=== PATIENT | female | born 1965 | race Caucasian/White ===

== ENCOUNTER → 2018-04-04 10:13 | Outpatient (CLI) | payer MEDICARE, SELFPAY ==
--- NOTE | 2018-04-04 10:20 | RAD_ITS ---
STUDY: X-RAY - LEFT ANKLE REASON FOR EXAM: Female, 52 years old. Pain radiating into heel, no history of injury. TECHNIQUE: 3 view(s) of the ankle. COMPARISON: None. FINDINGS: Normal visualized distal tibia and fibula. Minor spurring at the tip of the medial malleolus. Normal lateral malleolus. Normal tibiotalar articulation and ankle mortise. Normal visualized talus and calcaneus. The visualized subtalar, talonavicular, calcaneocuboid and tarsal articulations are normal. There is no demonstrated osseous destructive lesion or fracture. Minor cutaneous/subcutaneous calcifications seen in the anterior soft tissues of the distal lower leg. RAD/Ankle min 3 Views IMPRESSION: No acute osseous abnormality of the left ankle. Electronically Signed: Ad Grey MD at 10:55 EDT , Service support ,
--- NOTE | 2018-04-04 10:20 | RAD_ITS ---
STUDY: X-RAY - LEFT FOOT CLINICAL: Female, 52 years old. Calcaneal pain. No known injury. TECHNIQUE: 3 view(s) of the foot. COMPARISON: Comparison is made with prior study April 24, 2017. FINDINGS: Normal talus, calcaneus, and tarsal bones. Normal visualized subtalar, talonavicular, calcaneocuboid, tarsal and tarsometatarsal articulations. The patient is status post osteotomy and bunionectomy of the distal first metatarsal. There is degenerative arthrosis of the metatarsophalangeal joint of the hallux . Normal tibial and fibular sesamoid bones. Normal interphalangeal joint of the great toe. Normal phalanges of the great toe. Normal second through fifth metatarsophalangeal joints. Normal interphalangeal joints and phalanges of the lesser toes. The soft tissue structures are unremarkable. RAD/Foot min 3 Views IMPRESSION: Prior bunionectomy. No acute abnormality is seen. Electronically Signed: Ari Lemus MD at 13:59 EDT Tel [phone], Service support ,
== END ==
PROVIDERS: Family Provider Internal Medicine; PCP Internal Medicine; Visit Provider Internal Medicine
DX: M79.672 Pain in left foot (principal)
CPT/HCPCS: 73610; 73630

== ENCOUNTER → 2018-05-09 07:18 | Outpatient (CLI) | payer MEDICARE, SELFPAY ==
--- NOTE | 2018-05-09 07:18 | DT_ITS ---
This patient was seen during an EMR downtime May 02, 2018 - May 09, 2018. This patient may have a combination of paper and electronic documentation or all paper documentation. All documentation is viewable within the e-chart portion of [employer] for each patient visit.
--- NOTE | 2018-05-09 07:25 | MRI_ITS ---
STUDY: MRI LEFT MIDFOOT REASON FOR EXAM: Pain distal third metatarsal, history of previous stress fracture and prior great toe surgery. TECHNIQUE: Standardized fat and water weighted pulse sequences were obtained in all 3 orthogonal planes. COMPARISON: Radiographs 04/04/2018 and MRI images 05/05/2017. FINDINGS: Normal talonavicular articulation. Normal calcaneocuboid articulation. Normal navicular-cuneiform articulations. Normal intercuneiform articulations. Normal first tarsometatarsal articulation. Normal Lisfranc ligament. Normal second and third tarsometatarsal articulations. Normal cuboid fourth and cuboid fifth tarsometatarsal articulation. There is interval development of a stress fracture of the distal third metatarsal diaphysis with bone and periosteal edema (inversion recovery sagittal image 14; T2 axial series 6 image 9). There is healed stress fracture deformity of the second metatarsal (T1 sagittal image 11) without bone edema. There are postsurgical changes of the first metatarsal with a healed osteotomy (T1 sagittal image 5). There is arthrosis of the first metatarsophalangeal joint with chondral thinning and subchondral cystic change (inversion recovery sagittal image 5). There is a small volume of fluid in the distal tibialis anterior tendon sheath (inversion recovery sagittal images 4, 5). Normal extensor hallucis longus tendon. Normal extensor digitorum longus tendons. Normal peroneus longus tendon and distal insertion. Normal peroneus brevis tendon and distal insertion. Normal intrinsic muscles of the mid and forefoot region. Normal extensor digitorum brevis muscle. Normal subcutis adipose space. MRI/Lower Ext/No Jt/w/o IMPRESSION: Stress fracture of the third metatarsal. Healed stress fracture of the second metatarsal. Mild distal tibialis anterior tenosynovitis. Postoperative changes of the first metatarsal and arthrosis of the first metatarsophalangeal joint. Electronically Signed: Mack Foster MD at 8:49 EDT Tel , Service support ,
== END ==
PROVIDERS: Family Provider Internal Medicine; PCP Internal Medicine; Visit Provider Internal Medicine
DX: M79.672 Pain in left foot (principal)
CPT/HCPCS: 73718

== ENCOUNTER 2018-05-17 15:30 | Outpatient (RCR) | payer MEDICARE, SELFPAY ==
--- NOTE | 2018-04-12 07:46 | HP.PTEVAL_ITS ---
Patient's Visit Information DARWIN BOLAÑOS is a 52 year old F referred to Physical Therapy by Luisa Coffey with a diagnosis of L foot pain, history of foot stress fracture. Date of Evaluation: 04/11/18 Physical Therapist: Santhosh Fang - Visit Plan Frequency: 2x /Week Duration: 4 Weeks Plan: Start with modalities to L foot (3rd met head US), pt. to wear boot of L foot for 2 weeks. Add in BLE and core strengthening exercises to complete in gym to increase proper gait pattern. May trial tapping to improve foot placement with gait. - Subjective Subjective: Pt. is here today for her initial evaluation with diagnosis of L foot pain, history of foot stress fracture. Pt. 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 Pt. has a history of multiple fractures, including 2 metatarsal. Pt. reports having increased L foot pain ~4 weeks ago. She put her self in a CAM boot for 4 days which helped her pain, but did feel like she was developing plantar fascitis due to being in boot. She has now taken her self out and is having 3rd metatarsal pain again. Pt. reports no mechanism of injury , but just started having pain. Pt. is concerned due to hav xray with previous stress fracture and xray did not show that fracture either. Not definitively diagnosed until MRI. Pt. has increased pain with all weight bearing positioning , but is worst with walking. Decreases pain: sitting, off loading, wearing boot. Pt. does report mild relief with OTC pain meds. Pt. is hopeful to reduce symptoms in order to get back to all recreational activities and walking without limitations. - Pain L 3rd metatarsal Pain Intensity (Out of 10): 2 Pain Intensity Range: 0, 6 - Objective POSTURE: Pt. has descent posture in stance. Pt. has normal arch height, slightlt pes cavus. Pt. has no navicular drop in SLS positioning. PALPATION: pt. has increased pain at 3rd metatarsal head and shaft. Pt. has no pain at 2nd or 4th metatarsals. Pt. has no pain at distal 3rd toe. Pt. has no pain along medial longitudinal arch or plantar fascia origin. NEUROLOGICAL: Pt. has normal sensation to light and sharp touch of bilateral LEs. Pt. has 2+ achilles and patellar DTR. Pt. is able to rise on heels and toes, but has increased pain with rising on toes (3rd metatarsal). No signs of weakness or LOB noted. ROM: Pt. has normal ROM of bilateral ankle and feet with issues. Light joint mobs were painful in L foot around 3rd metatarsal. MMT: Pt. has 5/5 strength throughout bilateral ankles and intrinsic musculature of feet. Pt. has no pain with testing, except for hand pressure on area. GAIT: Pt. has antalgic gait pattern with decreased rocker moment from mid foot to for foot at transition of stance phase to heel off. Pt. reports increased fore foot pain during this motion. Pt. has decreased pain with reduction of that rocker moment. Pt. has normal pattern otherwise. Pt. does have slight increased tibial IR and knee valgus positioning with gait. No changes with iliac crest heights or glute med weakness noted. SPECIAL TESTING: Pt. had no pain with bump testing throughout ankle/foot. Pt. had no pain with metatarsal squeeze for germain's neuroma. - Goals Goal 1:: Pt. to be I with HEP. Goal Time Frame: 4-6 Weeks Goal 2:: Pt. to ambulate with normal gait pattern unlimited distances without increase in symptoms. Goal Time Frame: 4-6 Weeks Goal 3:: Pt. to resume all ADLs and household work without increase in symptoms. Goal Time Frame: 4-6 Weeks Goal 4:: Pt. to have increased BLE and core strength to reduce tibial IR and knee valgus positioning with gait in order to allow for normal diffuse pressure applied to LEs with gait and WBing. - Rehabilitation Potential Physical Therapy Diagnosis: Pt. has signs and symptoms consistent with L foot pain. Pt. has pain located at 3rd metatarsal closed to met head, that worsens with WBing positions. Pt. had negative testing for a germain's neuroma. Pt. would benefit from BLE and core strength with use of modalities to reduce pain at L foot with all WBing activities. Rehabilitation Potential: Good - Anticipated Interventions Patient/Client Instruction: Educate patient on: Condition, Plan of Care, Risk Factors, Benefits of Fitness Program For the Purpose of:: To improve health and function, To foster healthy habits, To improve decision making, To facilitate caregiver knowledge, To improve self management, To prevent re-injury, To improve ability to perform tasks related to life management, To improve tolerance to ADL's Therapeutic Exercise to Include: Strength training, Power training, Endurance training, Balance training, Flexibilty training, Gait and locomotor training, Passive ROM, Active ROM, Dynamic Lumbar Stabilization For the Purpose of:: To decrease pain, To increase ROM, To improve nutrient delivery to tissue, To increase oxygenation perfusion, To improve muscle performance and motor function, To improve ability to perform ADL's, To increase tolerance to activity/condition/position, To improve gait and locomotor functions, To improve health of tissue, To decrease soft tissue restriction Ultrasound (thermal/non thermal): Yes For the Purpose of:: To decrease pain, To decrease swelling/inflammation, To increase ROM Thank you for the opportunity to evaluate your patient. For Medicare and Medicare HMO plans, please review the plan of care and approve it. It will need to be FAXED BACK to us at [phone] for Medicare purposes. Please let me know if there are questions or concerns regarding this plan of care. Physician Signature: Date:
--- NOTE | 2018-09-06 13:08 | HP.PT.NRP ---
HP - Discharge Summary (1) - Patient Information DARWIN BOLAÑOS was seen in my office for initial evaluation on 04/11/18. The following Plan of Care was established for this patient: Initial Frequency: 2x /Week Initial Duration: 4 Weeks - Anticipated Interventions Patient/Client Instruction: Educate patient on: Condition, Plan of Care, Risk Factors, Benefits of Fitness Program For the Purpose of:: To improve health and function, To foster healthy habits, To improve decision making, To facilitate caregiver knowledge, To improve self management, To prevent re-injury, To improve ability to perform tasks related to life management, To improve tolerance to ADL's Therapeutic Exercise to Include: Strength training, Power training, Endurance training, Balance training, Flexibilty training, Gait and locomotor training, Passive ROM, Active ROM, Dynamic Lumbar Stabilization For the Purpose of:: To decrease pain, To increase ROM, To improve nutrient delivery to tissue, To increase oxygenation perfusion, To improve muscle performance and motor function, To improve ability to perform ADL's, To increase tolerance to activity/condition/position, To improve gait and locomotor functions, To improve health of tissue, To decrease soft tissue restriction Ultrasound (thermal/non thermal): Yes For the Purpose of:: To decrease pain, To decrease swelling/inflammation, To increase ROM This patient was last seen in our office 05/17/18. Pertinent comments regarding their Physical therapy will appear below: Pt. was seen for her foot pain. She ended up have a stress fracture, but did not require surgery. Pt. progressed with modalities and at her last visit was having minimal pain. Pt. has not been seen in ~4 months and will be DC from PT at this point in time. At this point I will be discontinuing this patient from physical therapy. I would be happy to see this patient again in the future if found appropriate by the physician. Thank you! Santhosh Fang
== END 2018-05-17 19:00 | disposition home or self-care (01) ==
LOC: PT 15:30
PROVIDERS: Family Provider Internal Medicine; PCP Internal Medicine; Visit Provider Internal Medicine
DX: M79.672 Pain in left foot (principal); Z87.312 Personal history of (healed) stress fracture
CPT/HCPCS: 97035; 97110; 97162

== ENCOUNTER 2020-04-24 13:00 | Outpatient (RCR) | payer MEDICARE, SELFPAY ==
--- NOTE | 2020-01-11 12:40 | HP.PTEVAL2 ---
Patient's Visit Information DARWIN BOLAÑOS is a 54 year old F referred to Physical Therapy by HUMBERTO MCGUIRE with a diagnosis of . Date of Evaluation: Physical Therapist: Shiv Dodd, PT, ATC - Anticipated Interventions Thank you for the opportunity to evaluate your patient. For Medicare and Medicare HMO plans, please review the plan of care and approve it. It will need to be FAXED BACK to us at [phone] for Medicare purposes. For Medicare only, by signing this I certify the plan of care. Please let me know if there are questions or concerns regarding this plan of care. Physician Signature: Date:
--- NOTE | 2020-02-16 13:31 | HP.PTEVAL2 ---
Patient's Visit Information DARWIN BOLAÑOS is a 54 year old F referred to Physical Therapy by HUMBERTO MCGUIRE with a diagnosis of Thoracic spine pain and guarding. 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 Pt notes she has had thoracic spine pain ever since. Pt reports the pain in her thoracic spine is mostly due to tightness and muscle guarding. Pt reports she also has a sharp stabbing pain that is located in her LB. Pt reports all this pain limits her quite a bit with daily activities such as housework and outside work. Pt reports her pain is constant in nature, but the level varies depending on what she is doing. No tingling or numbness in LE's. Sleep difficulty secondary to pain. Pt is not able to run secondary to pain. Pt loves to garden but is unable to perform this activity secondary to pain. 1/10 pain at rest, 8/10 pain at worst (results in a burning sensation) - Pain T/S and L/S Intensity: 1 Pain Intensity Range: 8 - Objective Objective: Neuro: B LE sensation is WNL to light touch. B achilles reflex= 2/3. Palpation: Pt has significant guarding in lower thoracic spine which extends L/S. No obvious deformity with palpation. ROM: Pt is moderately limited with T/S R SB and rot. All other motions are WNL. Repeated movements: RFIS 10x3 decreased pain. Prone lying on elbows by 10 sec increased pain on this date - Goals Goal 1:: Decrease Back pain x 50% to aid with sleep Goal Time Frame: 4-6 Weeks Goal 2:: Increase thoracic spine ROM x 1 grade to aid with IADL's Goal Time Frame: 4-6 Weeks Goal 3:: I with HEP Goal Time Frame: 4-6 Weeks - Rehabilitation Potential Physical Therapy Diagnosis: Pt has back pain, limited ROM, and intolerance for performing IADL's secondary to degenerative changes in the L/S and T/S. Rehabilitation Potential: Good - Anticipated Interventions Patient/Client Instruction: Educate patient on: Condition, Plan of Care For the Purpose of:: To improve self management Therapeutic Exercise to Include: Strength training, Body mechanics, Postural training, Dynamic Lumbar Stabilization For the Purpose of:: To decrease pain, To increase ROM Manual Therapy Techniques to Include: Soft tissue mobilization For the Purpose of:: To decrease pain, To decrease soft tissue restriction IF ES: Yes For the Purpose of:: To decrease pain Thank you for the opportunity to evaluate your patient. For Medicare and Medicare HMO plans, please review the plan of care and approve it. It will need to be FAXED BACK to us at [phone] for Medicare purposes. For Medicare only, by signing this I certify the plan of care. Please let me know if there are questions or concerns regarding this plan of care. Physician Signature: Date:
--- NOTE | 2020-07-05 12:11 | HP.PT.NRP ---
DARWIN BOLAÑOS was seen in my office for initial evaluation on 01/11/20. The following Plan of Care was established for this patient: Initial Frequency: 2x /Week Initial Duration: 2 Weeks Patient/Client Instruction: Educate patient on: Condition, Plan of Care For the Purpose of:: To improve self management Therapeutic Exercise to Include: Strength training, Endurance training, Active ROM, Scapular Strength/Stabilization For the Purpose of:: To decrease pain, To increase ROM, To improve muscle performance and motor function Cryotherapy (ice pack, ice massage): Yes For the Purpose of:: To decrease pain This patient was last seen in our office . Pertinent comments regarding their Physical therapy will appear below: Pt was treated for 8 PT visits for L shoulder pain through the date of 02/23/20. Pt has not returned through todays date and is discontinued at this time. At this point I will be discontinuing this patient from physical therapy. I would be happy to see this patient again in the future if found appropriate by the physician. Thank you! Shiv Dodd, PT, ATC
--- NOTE | 2020-07-05 12:12 | HP.PT.NRP(2) ---
DARWIN BOLAÑOS was seen in my office for initial evaluation on 02/16/20. The following Plan of Care was established for this patient: Initial Frequency: 1x/Week Initial Duration: 6 Weeks Plan from Re-Evaluation: Postural edu, core strengthening, SKTC/DKTC, nustep, massage, CAYETANO, and HEP Patient/Client Instruction: Educate patient on: Condition, Plan of Care For the Purpose of:: To improve self management Therapeutic Exercise to Include: Strength training, Body mechanics, Postural training, Dynamic Lumbar Stabilization For the Purpose of:: To decrease pain, To increase ROM Manual Therapy Techniques to Include: Soft tissue mobilization For the Purpose of:: To decrease pain, To decrease soft tissue restriction IF ES: Yes For the Purpose of:: To decrease pain This patient was last seen in our office . Pertinent comments regarding their Physical therapy will appear below: Pt was treated for 4 PT visits for back pain through the date of 02/23/20. Pt has not returned through todays date and is discontinued at this time. At this point I will be discontinuing this patient from physical therapy. I would be happy to see this patient again in the future if found appropriate by the physician. Thank you! Shiv Dodd, PT, ATC
== END 2020-04-24 19:00 | disposition home or self-care (01) ==
LOC: PT 13:00
PROVIDERS: PCP Internal Medicine
DX: M25.512 Pain in left shoulder (principal); G89.29 Other chronic pain; M54.6 Pain in thoracic spine; M62.830 Muscle spasm of back
CPT/HCPCS: 97014; 97032; 97035; 97110; 97140; 97161; G0283

== ENCOUNTER → 2020-06-12 09:19 | Outpatient (CLI) | payer MEDICARE, SELFPAY ==
--- NOTE | 2020-06-12 09:21 | BI_ITS ---
MAMMOGRAPHY - BILATERAL SCREENING REASON FOR EXAM: Female, 54 years old. Routine annual screening examination. PERTINENT HISTORY: Non-contributory. TECHNIQUE: Digital bilateral breast stanton (3D mammographic acquisition) in the CC and MLO projections. 2-D mediolateral oblique (MLO) and craniocaudad (CC) views of both breasts were obtained. CAD: Full Field Digital Mammography with Computer Added Detection was performed. COMPARISON: Comparison is made with prior study dated March 05, 2017. FINDINGS: Breast Composition: The breasts are heterogeneously dense, which may obscure small masses. There are no dominant masses or suspicious calcifications. Stable small benign-appearing bilateral axillary lymph nodes. No other significant abnormalities are identified. There has been no significant change since the prior study. BI/SCREEN MAMM (CAD) W/STANTON BILAT IMPRESSION: Stable bilateral screening mammogram. Yearly follow-up mammogram recommended. (A) ASSESSMENT CATEGORY: BIRADS Category 2: Benign. A letter regarding these results will be sent to the patient by the facility within 30 days. Approximately 10% of breast cancers are not detected by mammography. A normal mammogram should not delay biopsy of a clinically suspicious abnormality. [id number] Electronically Signed: Ari Lemus, at 10:35 EDT , Service support ,
--- NOTE | 2020-06-12 09:24 | BD_ITS ---
STUDY: DUAL ENERGY X-RAY ABSORPTIOMETRY / DXA REASON FOR EXAM: Female, 54 years old. 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 COMPARISON: Comparison is made with prior study dated October 06, 2017. FINDINGS: Lumbar Spine (L1-L4): g/cm2 (1.131) / T-score (-0.3) / Z-score (0.5) Findings are suggestive of normal bone density with a low fracture risk. Left Femur Total: g/cm2 (0.966) / T-score (-0.3) / Z-score (0.3) Left Femoral Neck: g/cm2 (0.822) / T-score (-1.6) / Z-score (10.6) Right Femur Total: g/cm2 (0.944) / T-score (-0.5) / Z-score (0.1) Right Femoral Neck: g/cm2 (0.857) / T-score (-1.3) / Z-score (-0.3) The T-Scores on the most recent prior examination were: Lumbar Spine (L1-L4): There has been improvement of bone density since the previous examination. Left Femur Total: which represents an improvement of 7.1%. Right Femur Total: which represents an improvement of 4%. BD/Dexa Bone Density Study IMPRESSION: The patient is considered osteopenic as outlined below according to World Francois Organization (WHO) criteria with a moderate fracture risk. There has been improvement of bone density since the previous examination. Reference Information: The T-score is the number of standard deviations above or below the standard which is normal for young adults at their peak bone mineral density. The World Health Organization (WHO) interprets the T-scores as follows: Above -1 Normal bone density Between -1 and -2.5 Osteopenia Equal to / or below -2.5 Osteoporosis As a practical clinical guideline, osteopenia may be graded as follows: Mild -1 through -1.5 Moderate -1.6 through -2.0 Severe -2.1 through -2.4 The Z-score is the number of standard deviations above or below age-matched controls. A Z-score of less than -1.5 would be considered abnormal. References: 1. NIH Osteoporosis and Related Bone Diseases http://www.osteo.org 2. International Society for Clinical Densitometry http://www.iscd.org 3. National Osteoporosis Foundation http://www.nof.org Electronically Signed: Ari Lemus, at 8:56 EDT , Service support ,
== END ==
PROVIDERS: PCP Internal Medicine; Referring Provider Internal Medicine; Visit Provider Internal Medicine
DX: Z12.31 Encounter for screening mammogram for malignant neoplasm of breast (principal); M85.89 Other specified disorders of bone density and structure, multiple sites
CPT/HCPCS: 77063; 77067; 77080

== ENCOUNTER → 2020-11-15 08:56 | Outpatient (CLI) | payer MEDICARE, SELFPAY ==
--- NOTE | 2020-11-15 08:58 | ECHOD_ITS ---
Reason For Study: Adrenal Insufficiency Procedure This was a 2D Doppler, Color Flow transthoracic echocardiogram. Exam performed in department. Left Ventricle Normal LV size. The estimated ejection fraction is 65 %. No evidence for diastolic dysfunction. No regional wall motion abnormalities noted. Right Ventricle Normal RV size. Normal systolic function. Atria Normal left atrium. Normal right atrium. No doppler evidence for ASD. Mitral Valve There is no mitral valve stenosis. Trivial mitral valve insufficiency. Tricuspid Valve There is no tricuspid stenosis. Trivial tricuspid valve insufficiency. Pulmonary artery systolic pressure is 25 mmHg. Aortic Valve Trisinus/trileaflet aortic valve. There is no aortic stenosis. No aortic valve insufficiency. Pulmonic Valve There is no pulmonic valvular stenosis. No pulmonic valve insufficiency. Great Vessels Normal aortic root. Pericardium/Pleural No pericardial effusion. MMode/2D Measurements & Calculations LVIDd: 4.6 cm IVSd: 1.2 cm Ao root diam: 3.3 cm LVIDs: 2.8 cm LVPWd: 1.2 cm LA dimension: 3.0 cm RVDd: 3.2 cm FS: 38.3 % LAV(MOD-bp): 39.7 ml LA A4 area: 16.6 cm2 RA A4 area: 14.9 cm2 LAV(MOD-bp) Indexed: 24.8 ml/m2 LAV(MOD-sp2): 34.6 ml LAV(MOD-sp4): 41.9 ml Time Measurements MV dec time: 0.24 sec Doppler Measurements & Calculations MV E max homer: 69.8 cm/sec Lat Peak E' Homer: 8.4 cm/sec Med Peak E' Homer: 7.2 cm/sec MV A max homer: 61.9 cm/sec E/E' lat: 8.3 E/E' med: 9.7 MV E/A: 1.1 MV V2 max: 88.4 cm/sec MV P1/2t max homer: 83.0 cm/sec Ao V2 max: 119.2 cm/sec MV max P.1 mmHg MV P1/2t: 81.9 msec Ao max P.7 mmHg MV V2 mean: 52.1 cm/sec MV dec slope: 297.0 cm/sec2 MV mean P.3 mmHg MVA(P1/2t): 2.7 cm2 MV V2 VTI: 23.9 cm LV V1 max: 108.7 cm/sec PA V2 max: 94.4 cm/sec TR max homer: 221.5 cm/sec LV V1 max P.7 mmHg TR max P.6 mmHg Interpretation Summary No evidence for diastolic dysfunction. Trivial mitral valve insufficiency. The estimated ejection fraction is 65 %. Ordering Physician: Luisa Coffey Referring Physician: Luisa Coffey Performed By: Mingo De León RCS
== END ==
PROVIDERS: PCP Internal Medicine; Referring Provider Internal Medicine; Visit Provider Internal Medicine
DX: R06.02 Shortness of breath (principal); E27.40 Unspecified adrenocortical insufficiency
CPT/HCPCS: 93306

== ENCOUNTER 2021-01-24 06:29 | Day surgery (SDC) | payer MEDICARE, SELFPAY ==
[2020-12-31 14:12] VITALS: BMI 21.6
[2021-01-24] VITALS (8 sets, daily range): BP systolic 89–124; BP diastolic 66–77; PULSE 57–70; RESP 16; TEMP 36.1–36.9; O2SAT 100; BMI 22.1
--- NOTE | 2021-01-24 | COLBX_PTH ---
PATIENT: DARWIN BOLAÑOS LOC: EN U#:[id number] AGE/SX: 55/F ROOM: RE01/24/[address]: Dr. Michelet Cruz MD : 1965 BED: DIS: 01/24/2021 SPEC #: [id number] RECD: 01/24/21 12:38 STATUS: TUNDE REBurt #: [id number] LILY: 01/24/21 00:[address]: Michelet Cruz DEPT: SURGICAL PATHOLOGY RECD BY: Thomas Mena ENTERED: 01/24/21 12:39 SP TYPE: COLON BX OTHR DR: Dr. Luisa Coffey MD Tissues: A - Duodenum, NOS B - Gastric mucous membrane C - Gastric mucous membrane D - Esophageal mucous membrane E - Esophageal mucous membrane Procedures: Special Stain Group II Surgery Specimen Level IV Alcian Blue/PAS (control) HEADER OPER[place] [place] DIAGNOSIS: GERD TISSUE SUBMITTED: A - Duodenum biopsy, B - Antrum biopsy, C - Cardia depression biopsy, D - Distal esophagus, E - Mid esophagus biopsy MICROSCOPIC DIAGNOSIS A. Duodenum, biopsy: A fragment of duodenal mucosa with Kevin gland hyperplasia. B. Antrum, biopsy: Mild gastritis. See microscopic description and comment. C. Cardia depression, biopsy: A fragment of gastric mucosa with mild chronic inflammation. D. Distal esophagus, biopsy: Fragments of gastroesophageal mucosa with mild chronic inflammation. Intestinal metaplasia (goblet cell metaplasia) is not identified. See comment. E. Mid esophagus, biopsy: A fragment of squamous mucosa, no pathologic diagnosis. SJ:mayelin 01/27/2021 COMMENT B. The results of immunohistochemistry for Helicobacter pylori will be reported separately ([id number]). D. Alcian blue/PAS stain with matched control is used in the evaluation of the specimen. MICROSCOPIC DESCRIPTION Slides are reviewed. B. The specimen shows fragments of gastric mucosa with chronic inflammatory cell infiltrates in the lamina propria consisting of lymphocytes and plasma cells, consistent with mild chronic gastritis. GROSS DESCRIPTION A - Received in fixative is one container labeled with the patient's name and designated duodenum biopsy. The specimen consists of one irregular fragment of light kerr soft tissue that measures 0.3 x 0.2 x 0.1 cm. The specimen is totally submitted in one cassette. B - Received in fixative is one container labeled with the patient's name and designated antrum biopsy. The specimen consists of one irregular fragment of light kerr soft tissue that measures 0.3 x 0.3 x 0.1 cm. The specimen is totally submitted in one cassette. C - Received in fixative is one container labeled with the patient's name and designated cardia depression biopsy. The specimen consists of one irregular fragment of light kerr soft tissue that measures 0.3 x 0.3 x 0.1 cm. The specimen is totally submitted in one cassette. D - Received in fixative is one container labeled with the patient's name and designated distal esophagus biopsy. The specimen consists of multiple irregular fragments of light kerr soft tissue that in aggregate measure 0.5 x 0.5 x 0.1 cm. The specimen is totally submitted in one cassette. E - Received in fixative is one container labeled with the patient's name and designated mid esophagus biopsy. The specimen consists of one irregular fragment of light kerr soft tissue that measures 0.4 x 0.3 x 0.1 cm. The specimen is totally submitted in one cassette. / CHANTAL:mayelin 01/24/21 TC:3 CPT: 53216 x5, 54182
--- NOTE | 2021-01-24 06:49 | PCM.HP.BLA ---
Problem List (1) Gastroesophageal reflux disease Status: Acute Qualifiers: History and Physical Date of Admission: 01/24/21 Intake Visit Reasons: EGD Chief Complaint: egd [employer] Required: No Is patient in pain?: No Allergies Penicillins Allergy (Verified 12/31/20 14:13) Rash Medications Biotin 5,000 mcg PO DAILY 05/28/17 [History Confirmed 12/31/20] Calcium Carb/Vitamin D3/Vit K1 [Citracal Soft Chew] 1 ea PO DAILY 05/28/17 [History Confirmed 12/31/20] Docusate Sodium [Colace] 100 mg PO DAILY 05/28/17 [History Confirmed 12/31/20] Hydrocortisone [Cortef] 5 mg PO BID 05/28/17 [History Confirmed 12/31/20] Liothyronine Sodium [Cytomel] 5 mcg PO BID 05/28/17 [History Confirmed 12/31/20] Metoprolol Succinate [Toprol Xl] 25 mg PO DAILY 05/28/17 [History Confirmed 12/31/20] Naproxen [Naprosyn] 500 mg PO BID PRN PRN 05/28/17 [History Confirmed 12/31/20] Prasterone (Dhea) [Dhea] 25 mg PO DAILY 05/28/17 [History Confirmed 12/31/20] Quetiapine Fumarate [Seroquel] 300 mg PO QHS 05/28/17 [History Confirmed 12/31/20] ascorbic acid (vitamin C) 2 g PO DAILY g 12/31/20 [History Confirmed 12/31/20] calcium citrate 200 mg (950 mg) tablet 200 mg PO TID 12/31/20 [History Confirmed 12/31/20] cyclobenzaprine 10 mg tablet 10 mg PO .prn tab 12/31/20 [History Confirmed 12/31/20] estradiol-norethindrone acet 1 mg-0.5 mg tablet 1 tab PO DAILY 12/31/20 [History Confirmed 12/31/20] gabapentin 300 mg capsule 300 mg PO BID 12/31/20 [History Confirmed 12/31/20] hydrochlorothiazide 25 mg tablet 25 mg PO DAILY 12/31/20 [History Confirmed 12/31/20] hydrocortisone sod succinate 100 mg solution for injection 100 mg IM Q12H 12/31/20 [History] ibuprofen 800 mg tablet 800 mg PO .prn tab 12/31/20 [History Confirmed 12/31/20] iron-folic acid-multivitamin, mineral comb#15 106 mg iron-1 mg capsule 1 cap PO DAILY 12/31/20 [History Confirmed 12/31/20] lamotrigine 200 mg tablet 200 mg PO DAILY 12/31/20 [History Confirmed 12/31/20] levothyroxine 50 mcg tablet 75 mcg PO DAILY tab 12/31/20 [History Confirmed 12/31/20] lorazepam 0.5 mg tablet 0.5 mg PO Q6H PRN tab 12/31/20 [History Confirmed 12/31/20] losartan 100 mg tablet 100 mg PO DAILY 12/31/20 [History Confirmed 12/31/20] meloxicam 15 mg tablet 15 mg PO .prn tab 12/31/20 [History Confirmed 12/31/20] multivitamin with minerals 1 tab PO DAILY 12/31/20 [History Confirmed 12/31/20] omeprazole 20 mg capsule,delayed release 20 mg PO DAILY 12/31/20 [History Confirmed 12/31/20] sucralfate 1 gram tablet 1 g PO QACHS 12/31/20 [History Confirmed 12/31/20] turmeric root extract 500 mg capsule 500 mg PO TID 12/31/20 [History Confirmed 12/31/20] zinc acetate 25 mg (zinc) capsule 25 mg PO DAILY 12/31/20 [History] [facility] Medical History Hypothyroid (Acute) Reflux gastritis (Acute) HTN (hypertension) (Chronic) Surgical History History of umbilical hernia repair (Acute) S/P bilateral foot surgery (Acute) S/P hemorrhoidectomy (Acute) S/P joint replacement (Acute) Status post selective transsphenoidal pituitary adenomectomy (Acute) s/p bladder sling (Acute) Social History (Updated 12/31/20 @ 14:[address] Michelet Cruz MD) Smoking Status: Never smoker alcohol intake: current HPI HPI HPI: DARWIN BOLAÑOS, is a 55 F who presents to the office today for surgical consultation regarding retrosternal burning discomfort and epigastric pain. The patient is referred by her primary care physician Dr. Luisa Coffey and a written copy of my surgical consult and recommendations will return to her. 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 2013 apparently was a very difficult year. She suggests that during that time she had some time of tilt table study which may have diagnosed with Zenker's diverticulum. She did not have any surgical treatment of that. About a month and a half ago she started with severe retrosternal burning discomfort. She is having some trouble swallowing her multiple pills. She was placed on omeprazole therapy with some benefit but was still having discomfort and so Carafate was added. That is assisting with some of her discomfort. She does not recall having ever had an upper scope exam. She states that she is still having difficulties with swallowing particularly her medications. HPI HPI HPI: DARWIN BOLAÑOS, is a 55 F who presents to the office today for ROS General General: No weight change, appetite, fatigue, colon cancer, breast cancer or weakness HEENT HEENT: No difficulty swallowing, eye injury, eye surgery, swollen glands or hoarseness Endo Endocrine: Yes thyroid disease; no diabetes mellitus, thyroid cancer, Hair loss, heat intolerance or cold intolerance Skin Skin: No rash or changing moles Breast Breast: No left breast lump, right breast lump, nipple discharge, breast pain, abnormal mammogram, abnormal US or breast enlargement Musc Musculoskeletal: Yes back problems; no arthritis, rheumatoid arthritis, gout or joint pain Cardio Cardiovascular: Yes high blood pressure; no murmur, pacemaker, heart disease, atrial fibrillation, heart attack, heart stent, palpitations, shortness of breat with exertion or chest pain Psych Psychiatric: Yes depression; no anxiety or hearing voices Resp Respiratory: No shortness of breath, No sleep apnea, No cough, No COPD, No asthma, No emphysema, No wheezing Gastro Gastrointestinal: No abdominal pain, No nausea or vomiting, No diarrhea, No constipation, No blood in stool, Yes acid reflux, Yes hemorrhoids, No ulcers, No gallbladder problem, No black,tarry stools Chance Hematologic: No blood thinners, No blood disorders, No bleeding, No anemia, No blood clots Neuro Neurologic: No system reviewed and no additional complaints, except as docu, No as per HPI, No abnormal walking, No abnormal hearing, No abnormal movements, No abnormal speech, No behavioral changes, No burning sensations, No confusion, No seizure-like activity, No unsteadiness, No dizziness, No localized weakness, No frequent falls, No headache(s), No lack of coordination, No loss of vision, No memory loss, No numbness, No other visual disturbances, No radiating pain, No restless legs, No sensory deficit, No fainting, No tingling, No tremor(s), No weakness, No other Exam Const General: cooperative, healthy appearing, comfortable, no acute distress Nutritional Appearance: average body habitus Orientation: alert, awake HENUT Head: normal to inspection Chest Breast Palpation: No nipple discharge Resp Effort & Inspection: normal respiratory effort Auscultation: clear to auscultation bilaterally Cardio Rate: regular rate Rhythm: regular rhythm Heart Sounds: no murmurs GI Palpation: soft Skin General: no rashes or lesions noted Neuro Cognition: normal cognition Extrem General: no calf tenderness Psych Affect: normal affect Assessment & Plan Problems 1. 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 Recent severe retrosternal discomfort and reflux symptoms. I do propose for her a esophagogastroduodenoscopy with possible biopsy. Careful inspection for possible H. pylori or reflux changes or Barr's changes or even eosinophilic esophagitis will be pursued. I suppose the patient would be at increased risk for candidiasis as well. She has had an opportunity to ask and have questions answered. We will schedule and proceed at her discretion. I will utilize monitored anesthesia care because of her increased risk. I appreciate the opportunity of assisting with her surgical care Copy: Dr. Luisa Cruz M.D., F.A.C.S. Coding Level of Care Code 74494 Diagnoses Gastroesophageal reflux disease, unspecified whether esophagitis present K21.9 ??Esophagitis presence: esophagitis presence not specified I have re-examined the patient. There are no clinical changes since date of exam. Procedure Criteria Procedure Type: Elective COVID Risk Discussion: The surgeon/proceduralist and patient have discussed in detail the risk of exposure to and/or potential harm posed by the COVID-19 virus with having a surgery/procedure at this time versus the risk of delaying the surgery/procedure. It is not possible to know either the risk of delaying the surgery or procedure or chance of getting an infection with perfect accuracy, but a joint decision was made between the patient and the surgeon/proceduralist to proceed at this time with the scheduled surgery/procedure as indicated on the consent form.
[2021-01-24] MEDS: Lactated Ringers 1,000 ML 100 ML IV (06:56)
--- NOTE | 2021-01-24 07:30 | IMM_PTH ---
PATIENT: DARWIN BOLAÑOS LOC: EN U#:[id number] AGE/SX: 55/F ROOM: RE01/24/[address]: Dr. Michelet Cruz MD : 1965 BED: DIS: 01/24/2021 SPEC #: [id number] RECD: 01/24/21 15:27 STATUS: TUNDE REQ #: [id number] LILY: 01/24/21 07:[address]: Michelet Cruz DEPT: IMMUNOHISTOCHEMISTRY RECD BY: Azalea Chen ENTERED: 01/24/21 15:28 SP TYPE: IMMUNO OTHR DR: Dr. Luisa Coffey MD Tissues: B - Stomach, NOS Procedures: H Pylori (initial) PHYSICIAN & INSTITUTION [place] [id number] SPECIMEN INFORMATION: Tissue Source: B - Antrum biopsy Clinical Info: GERD Specimen Number: [id number] CPT code: 94049 METHODOLOGY: Deparaffinized sections of prefer/formalin-fixed tissue or PAP/DQ stained slides are incubated with monoclonal/polyclonal antibodies/oligonucleotide probes. Localization is made via biotin free immunoperoxidase method. Appropriate controls are performed and reacted as expected. Results on target cell population are indicated in the following table: RESULTS: ANTIBODY / CLONE RESULT Block B H Pylori (polyclonal) negative These tests were developed and their performance characteristics determined by [facility]. They may not have been cleared or approved by the U.S. Food and Drug Administration. The FDA has determined that such clearance or approval is not necessary. INTERPRETATION: B. Antrum, biopsy: Negative for Helicobacter pylori organisms. SJ:mayelin 01/27/2021
--- NOTE | 2021-01-24 07:51 | OP.CCLET_ITS ---
01/24/2021 Luisa Coffey Re : Upper GI endoscopy procedure for Gayathri Noyola Dear Alexx This procedure was performed on Sunday, January 24, 2021. My impressions and recommendations are as follows: Impressions : - LA Grade A reflux esophagitis. Biopsied. - Small hiatal hernia. - Normal mid esophagus. Biopsied. - Chronic gastritis. Biopsied. - Gastric mucosal variant. Biopsied. - Normal examined duodenum. Biopsied. Recommendations : - Await pathology results. - Discharge patient to home. - Resume previous diet. - Continue present medications. - Telephone my office for pathology results in 1 week. My findings are described in the full procedure note, which is enclosed. If I can be of further assistance, please feel free to contact me at Doctor phone number(s): Work: . Sincerely, Mihcelet Cruz MD 01/24/2021 7:50:59 AM This report has been signed electronically.
--- NOTE | 2021-01-24 07:51 | OP.EGD_ITS ---
Patient Name: Gayathri Noyola Procedure Date: 01/24/2021 7:29 AM Date of : 1965 Age: 55 Procedure: Upper GI endoscopy Indications: Heartburn Providers: Michelet Cruz MD Referring MD: Luisa Coffey Medicines: See the Anesthesia note for documentation of the administered medications Complications: No immediate complications. Procedure: Pre-Anesthesia Assessment: - Prior to the procedure, a History and Physical was performed, and patient medications and allergies were reviewed. The patient's tolerance of previous anesthesia was also reviewed. The risks and benefits of the procedure and the sedation options and risks were discussed with the patient. All questions were answered, and informed consent was obtained. Prior Anticoagulants: The patient has taken ibuprofen. ASA Grade Assessment: III - A patient with severe systemic disease. After reviewing the risks and benefits, the patient was deemed in satisfactory condition to undergo the procedure. After obtaining informed consent, the endoscope was passed under direct vision. Throughout the procedure, the patient's blood pressure, pulse, and oxygen saturations were monitored continuously. The gastroscope was introduced through the mouth, and advanced to the second part of duodenum. The upper GI endoscopy was accomplished without difficulty. The patient tolerated the procedure well. Scope In: 7:35:11 AM Scope Out: 7:42:45 AM Total Procedure Duration Time 0 hours 7 minutes 34 seconds Findings: LA Grade A (one or more mucosal breaks less than 5 mm, not extending between tops of 2 mucosal folds) esophagitis with no bleeding was found 41 cm from the incisors. Biopsies were taken with a cold forceps for histology. A small hiatal hernia was present. The mid esophagus was normal. Biopsies were taken with a cold forceps for histology. Diffuse mild inflammation characterized by erythema was found in the gastric antrum. Biopsies were taken with a cold forceps for histology. Mucosal variance characterized by punctate spot was found in the cardia. Biopsies were taken with a cold forceps for histology. The examined duodenum was normal. Biopsies were taken with a cold forceps for histology. Impression: - LA Grade A reflux esophagitis. Biopsied. - Small hiatal hernia. - Normal mid esophagus. Biopsied. - Chronic gastritis. Biopsied. - Gastric mucosal variant. Biopsied. - Normal examined duodenum. Biopsied. Recommendation: - Await pathology results. - Discharge patient to home. - Resume previous diet. - Continue present medications. - Telephone my office for pathology results in 1 week. Procedure Code(s): --- Professional --- 39430, Esophagogastroduodenoscopy, flexible, transoral; with biopsy, single or multiple Diagnosis Code(s): --- Professional --- K21.0, Gastro-esophageal reflux disease with esophagitis K44.9, Diaphragmatic hernia without obstruction or gangrene K29.50, Unspecified chronic gastritis without bleeding K31.89, Other diseases of stomach and duodenum R12, Heartburn CPT copyright 2017 [employer]. All rights reserved. The codes documented in this report are preliminary and upon alignment specialist review may be revised to meet current compliance requirements. Michelet Cruz MD 01/24/2021 7:50:59 AM This report has been signed electronically. Number of Addenda: 0 Note Initiated On: 01/24/2021 7:29 AM
== END 2021-01-24 08:24 | disposition home or self-care (01) ==
LOC: EN 06:30 → AC 06:30
PROVIDERS: PCP Internal Medicine; Referring Provider Internal Medicine; Visit Provider Surgery
PROC: 0DJ08ZZ Inspection of Upper Intestinal Tract, Via Natural or Artificial Opening Endoscopic (ICD-10-PCS; CPT 43235; principal; 2021-01-24 07:25)
DX: K21.00 Gastro-esophageal reflux disease with esophagitis, without bleeding (principal); Z20.828 Contact with and (suspected) exposure to other viral communicable diseases; E03.9 Hypothyroidism, unspecified; I10 Essential (primary) hypertension; Z79.899 Other long term (current) drug therapy; K44.9 Diaphragmatic hernia without obstruction or gangrene; K29.50 Unspecified chronic gastritis without bleeding; R12 Heartburn; K31.89 Other diseases of stomach and duodenum
CPT/HCPCS: 43239; 87426; 88305; 88313; 88342; C9803; J7120; J2405

== ENCOUNTER → 2021-02-03 07:57 | Outpatient (CLI) | payer MEDICARE, SELFPAY ==
[2021-01-24 06:52] VITALS: BMI 22.1
--- NOTE | 2021-02-03 08:00 | US_ITS ---
HISTORY: Right upper quadrant and epigastric pain. TECHNIQUE: Isaacs scale and color doppler imaging was performed of the pancreas, liver, and gallbladder. COMPARISON: None FINDINGS: # of images incl. paperwork: 113 Within the right hepatic lobe there are 3 lesions that are echogenic non-shadowing with well-defined margins. One measures 10 x 12 mm, and another measures 11 x 11 mm. These are likely benign hemangiomas. No gallstones, gallbladder wall thickening or biliary dilatation. Gallbladder wall measures 3 mm. Common bile duct measures 8 mm. No tenderness upon insonation the gallbladder. Visualized pancreas is normal in appearance. Right kidney is normal in size and appearance. Visualized abdominal aorta has normal caliber. IVC is patent. Hepatopedal flow is present within the central portal vein. US/Gallbladder IMPRESSION: Extrahepatic biliary ductal dilatation without perceived choledocholithiasis or cholelithiasis. ERC, and MRCP are both more sensitive and specific and with a greater negative predictive value for choledocholithiasis. 3 lesions within the liver that appear to be benign hemangiomas.. at 0321 Reported and signed by: Rubin Duran MD Electronically Signed: Rubin Duran MD at 3:20 EST Tel , Service support ,
== END ==
PROVIDERS: PCP Internal Medicine; Referring Provider Surgery; Visit Provider Surgery
DX: R10.13 Epigastric pain (principal)
CPT/HCPCS: 76705

== ENCOUNTER → 2021-02-06 09:14 | Outpatient (CLI) | payer MEDICARE, SELFPAY ==
[2021-01-24 06:52] VITALS: BMI 22.1
[2021-02-06 09:47] LABS: ALB/GLOB Ratio 1.2 RATIO (0.9-2.4); AST(SGOT) 20 U/L (15-37); Alanine Aminotransfer ALT/SGPT 21 U/L (13-56); Albumin, Serum 3.6 g/dL (3.2-5.0); Alkaline Phosphatase 60 U/L (45-117); Amylase 64 U/L (25-115); Anion Gap 5 (5-15); BUN 14 mg/dL (7-18); BUN/Creat Ratio 13.3 RATIO (10-20); Calcium,Total 8.9 mg/dL (8.5-10.1); Chloride 108 mmol/L (98-107); Creatinine, Serum 1.05 mg/dL (0.55-1.02); EST Glomerular Filtration Rate 58 mL/min (>60); Est Glom Filt Rate - Afr Amer 70 mL/min (>60); Globulin 2.9 g/dL (2.2-4.2); Glucose 84 mg/dL (74-106); Lipase 131 U/L (73-393); Potassium 3.3 mmol/L (3.5-5.1); Protein, Total 6.5 g/dL (6.4-8.2); Sodium Level 142 mmol/L (136-145)
[2021-02-06 17:29] LABS: Xtra Tube EP Lab EXTRA TUBE
== END ==
PROVIDERS: PCP Internal Medicine; Referring Provider Surgery; Visit Provider Surgery
DX: R10.9 Unspecified abdominal pain (principal); R93.5 Abnormal findings on diagnostic imaging of other abdominal regions, including retroperitoneum
CPT/HCPCS: 36415; 80053; 82150; 83690

== ENCOUNTER → 2021-02-18 13:14 | Outpatient (CLI) | payer MEDICARE, SELFPAY ==
[2021-01-24 06:52] VITALS: BMI 22.1
--- NOTE | 2021-02-18 13:15 | MRI_ITS ---
MRCP w/o contrast 02/18/2021 1:58 PM COMPARISON: None CLINICAL HISTORY: abnormal CT scan of abdomen TECHNIQUE: Standard MRCP technique was utilized. FINDINGS: Liver: Multiple T2 hyperintense lesions throughout the liver are consistent with hemangiomas when compared with recent abdominal ultrasound. For example, a 1.2 cm lesion in segment 2/4b (image 13, series 3). Gallbladder: Unremarkable Bile Ducts: The common bile duct measures approximately 6 mm in diameter. No visualized intra or extra hepatic biliary ductal dilation. No stricture or filling defect seen. Pancreas: Unremarkable Spleen: Unremarkable Adrenal Glands: Unremarkable Kidneys: 1.5 cm T2 hyperintense cyst in the left mid pole with few thick septations. GI Tract: Unremarkable Lymphadenopathy: Absent Ascites: Absent Bones: No suspicious lesions MRI/MRCP Abdomen without Contrast IMPRESSION: No evidence of extra or intra hepatic biliary ductal dilatation. No evidence of choledocholithiasis. 1.5 cm cyst in the mid pole of the left kidney with few thick septations. Recommend follow up renal ultrasound. Multiple liver hemangiomas. Electronically Signed: Rahat Vizcaino MD at 17:13 EDT Tel , Service support ,
== END ==
PROVIDERS: PCP Internal Medicine; Referring Provider Surgery; Visit Provider Surgery
DX: R93.5 Abnormal findings on diagnostic imaging of other abdominal regions, including retroperitoneum (principal); K83.8 Other specified diseases of biliary tract
CPT/HCPCS: 74181

== ENCOUNTER 2021-04-09 09:00 | Outpatient (RCR) | payer MEDICARE, SELFPAY ==
[2020-12-31 14:12] VITALS: BMI 21.6
[2021-01-24 06:52] VITALS: BMI 22.1
--- NOTE | 2021-01-27 10:14 | HP.PTEVAL ---
Patient's Visit Information DARWIN BOLAÑOS is a 55 year old F referred to Physical Therapy by Dr. Luisa Coffey MD with a diagnosis of back and neck pain.. Date of Evaluation: 01/27/21 Physical Therapist: Jonathan Navarrete, DPT, OCS, CSCS - Visit Plan Frequency: 2x /Week Duration: 4-6 Weeks Plan: 2x/week for 4-6 weeks... 1. US to L UT themra and STM to neck. 2. 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 Is a member and should progress to I membership. Consider pool therapy as patient will have pool at home halfway but feels like she can get in as a member and start that herself. - Subjective I have been getting steroid injections and radio frequcy ablation in spine and neck area. They helped 70% for ta long time, lately not getting much improvement. Went to [facility] and recommended 3000$ worth of treatment adn she can't do that. Having acupuntcture adn TP injections of herbal concoctions. 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 Worse lying down. 3/10 at night, 0 during day. It makes it uncomfy to get to sleep. Uses biofreeze. Activities are normal with neck. Thoracic spine can hurt with muscle spasms at times making it difficult to breathe. Typically in standing at times 10/10 and can be there for days, otherwise mild spasms intemittently also for no apparent reason. Ice helps. LB also hurts and can be sharp, hard to sit too long in anabaptist or vehicle as these make it wore. Pain is up to 6/10 with sitting and gone with movement. Feels good when up and about. Pushing a wheelbarrel can also hurt and is limited. 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 - Pain LB Pain Intensity (Out of 10): 0 Pain Intensity Range: 0, 6 Neck Pain Intensity (Out of 10): 0 Pain Intensity Range: 0, 3 - Objective Walks I and safely. Trasnfers safe and I bed and chair. Full UE AROM, cervical AROM is hypermobile. Hands are deformed and hard to brake operator helper. reflexes 2/3 bi and tri and patella and achilles. Sensation UE and LE WNL to gross light touch. Strength hips 4-, knees 4, ankles 4, core ext 3+ and core flexion 3+. Strength shouldrs 3+ elevation, bi and tri 4/5 and wrists 4-. Tender to touch L cervical UT area adn B cervicl parapsinals. Posture shows some kyphosis in thoraci area and scoliossis with L concavity throacic spine. Hesitant to bend forward lumbar but has decent motion. L/S AROM ext pain centrally but good mtoion, flexion full but hesitant, SB contralateral tightness but good motion. No subjective ankle pain lately. - Goals Goal 1:: neck pain 0-1/10 and LBP 0-2 /10 and manageable without bad spasms. Goal Time Frame: 4-6 Weeks Goal 2:: Pt feel 75% yamile in overall movement and condition. 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 and posture and c/s Goal Time Frame: 4-6 Weeks Goal 4:: 15 or less oswestry score Goal Time Frame: 4-6 Weeks - Rehabilitation Potential Physical Therapy Diagnosis: back and neck pain and degeneration Rehabilitation Potential: Fair - Anticipated Interventions Patient/Client Instruction: Educate patient on: Condition, Plan of Care For the Purpose of:: To decrease pain, To improve muscle performance and motor function, To improve ability of physical actions for home/community/work/leisure Therapeutic Exercise to Include: Strength training, Postural training, Flexibilty training For the Purpose of:: To decrease pain, To improve muscle performance and motor function, To improve ability of physical actions for home/community/work/leisure Manual Therapy Techniques to Include: Soft tissue mobilization For the Purpose of:: To decrease pain, To improve nutrient delivery to tissue Ultrasound (thermal/non thermal): Yes - thermal L UT For the Purpose of:: To decrease pain, To improve nutrient delivery to tissue Thank you for the opportunity to evaluate your patient. For Medicare and Medicare HMO plans, please review the plan of care and approve it. It will need to be FAXED BACK to us at [phone] for Medicare purposes. For Medicare only, by signing this I certify the plan of care. Please let me know if there are questions or concerns regarding this plan of care. Physician Signature: Date:
--- NOTE | 2021-03-07 10:50 | HP.PTREVAL ---
Dr. Luisa Coffey MD, It has been my pleasure to treat DARWIN BOLAÑOS over the last 9 visits for back and neck pain.. Please see the progress note below for an update on the physical therapy plan of care! Subjective: Was in [place] and it could not have been better. Relaxing. Pain in neck is superb. Better than it has ever been. Not keeping her up at night. LB was bad and flared up wiht plane ride adn different bed. Has been home for a week adn back is better. It is intermittent adn worse with bending. Manageable with changing positions. 0-6/10. Neck is 0-1/10. Doing exercises but not as often as I like. at least 3x/week. Objective/Function: LB AROM ext painful and mildly limited , flexion and SB full. C/S aROM 85 ext adn 80 B rotation without pain. Good next movement. Walking and transferring normal today. Moving well except extension. Showing good posture. Finds neutral spine position easily and well, weak to maintain it. Plan Plan: Improving but still more pain in LB than I would like. Pt has recently opened a pool at her house and is appropriate for 3 visits of aquatherapy to teach appropriate LB /core stab exs in 4 foot pool section(her pool is 4 foot) including LB ROM. Would then like to progress to land based gym ex to work to an I program in gym that she will continue via [facility]. New goal set for pool and fair prognosis for I gyma dn pool program. Goals Goal 1:: neck pain 0-1/10 and LBP 0-2 /10 and manageable without bad spasms. Goal Time Frame: 4-6 Weeks Goal Progress: neck met, back apporp. Goal 2:: Pt feel 75% yamile in overall movement and condition. Goal Time Frame: 4-6 Weeks Goal Progress: neck met, back approp. Goal 3:: I approp management of condition including long-term strength of core and posture and c/s Goal Time Frame: 4-6 Weeks Goal Progress: needs pool, gym Goal 4:: 15 or less oswestry score Goal Time Frame: 4-6 Weeks Goal Progress: Goal Met Goal 5:: I apporp pool and gym based ex to manage condition. Goal Time Frame: 2-4 Weeks Anticipated Interventions Patient/Client Instruction: Educate patient on: Condition, Plan of Care For the Purpose of:: To decrease pain, To improve muscle performance and motor function, To improve ability of physical actions for home/community/work/leisure Therapeutic Exercise to Include: Strength training, Postural training, Flexibilty training For the Purpose of:: To decrease pain, To improve muscle performance and motor function, To improve ability of physical actions for home/community/work/leisure Manual Therapy Techniques to Include: Soft tissue mobilization For the Purpose of:: To decrease pain, To improve nutrient delivery to tissue Ultrasound (thermal/non thermal): Yes - thermal L UT For the Purpose of:: To decrease pain, To improve nutrient delivery to tissue Please do not hesitate to contact me at [phone] by phone or if you have questions or concerns regarding this new plan of care! Sincerely, Jonathan Navarrete, DPT, OCS, CSCS
--- NOTE | 2021-06-24 10:22 | HP.PT.NRP ---
DARWIN BOLAÑOS was seen in my office for initial evaluation on 01/27/21. The following Plan of Care was established for this patient: Initial Frequency: 2x /Week Initial Duration: 4-6 Weeks Patient/Client Instruction: Educate patient on: Condition, Plan of Care For the Purpose of:: To decrease pain, To improve muscle performance and motor function, To improve ability of physical actions for home/community/work/leisure Therapeutic Exercise to Include: Strength training, Postural training, Flexibilty training For the Purpose of:: To decrease pain, To improve muscle performance and motor function, To improve ability of physical actions for home/community/work/leisure Manual Therapy Techniques to Include: Soft tissue mobilization For the Purpose of:: To decrease pain, To improve nutrient delivery to tissue Ultrasound (thermal/non thermal): Yes - thermal L UT For the Purpose of:: To decrease pain, To improve nutrient delivery to tissue This patient was last seen in our office 04/09/21. Pertinent comments regarding their Physical therapy will appear below: Pt seen 17 visits of POC and was making good progress. She was to continue via home pool and gym exercise and f/u 3 weeks later but did not schedule or attend. I will discontinue at this time as it has been over two months. At this point I will be discontinuing this patient from physical therapy. I would be happy to see this patient again in the future if found appropriate by the physician. Thank you! Jonathan Navarrete, DPT, OCS, CSCS Balance/Gait/Functional tests - Balance/Special Test Scores Oswestry Low Back Score: 12
== END 2021-04-09 19:00 | disposition home or self-care (01) ==
LOC: PT 09:00
PROVIDERS: PCP Internal Medicine; Referring Provider Internal Medicine; Visit Provider Internal Medicine
DX: M51.36 Other intervertebral disc degeneration, lumbar region (principal); M25.549 Pain in joints of unspecified hand; M19.071 Primary osteoarthritis, right ankle and foot; R10.9 Unspecified abdominal pain; R93.5 Abnormal findings on diagnostic imaging of other abdominal regions, including retroperitoneum
CPT/HCPCS: 36415; 80053; 82150; 83690; 97035; 97110; 97113; 97140; 97162; 97530

== ENCOUNTER 2021-10-13 12:53 | Outpatient (RCR) | payer MEDICARE, SELFPAY ==
--- NOTE | 2021-10-13 13:35 | HP.PTEVAL_ITS ---
Patient's Visit Information DARWIN BOLAÑOS is a 56 year old F referred to Physical Therapy by Dr. Luisa Coffey MD with a diagnosis of R Shoulder strain. Date of Evaluation: 10/13/21 Physical Therapist: Jonathan Navarrete, DPT, OCS, CSCS - Visit Plan Frequency: f/u this month as needed Plan: I have educated patient that she probably just bruised some tissue and is healing well at 80% better with full ROM and good strength 2 days out. She will keep AROM R upper quarter and call if not 100% better in two weeks for strength, ROM and education on healing process. d/c 10/28 if no call. - Subjective Fell off stool(stool tipped over) in closet and landed on R shoulder posteriorly. That fall was 2 days ago. Was doing fine before that, but has stopped working out at . Avoided using arm for two days. Rested and used ice yesterday. 80% better this morning. Scap sore on posterior side. Pain is upper lateral arm and into posterior shoulder blade, neck is fine. No numbness or tingling. Slept Ok other than ice last night. Dressed self I. Arm feels pretty good today but is going to avoid moving it too much. - Pain R shoulder Pain Intensity (Out of 10): 0 Pain Intensity Range: 0, 8 - Objective Walks normal without antalgia or LOB. transfers I. Cervical AROm WNL and painfree. Posture is good. reflexes 2/3 bi and tri. - drop arm, - ext rotati on lag test, - sulcus, - HK and neer. Sensation UE WNL to gross light touch. Strength hands and wrists 4/5 without pain and full aROM. elbows full aROM and 4+/5 strength without pain. Shoulder IR/ER full aROM and 4/5 strength without pain. Shoulder elevation slow in abd but full, full flexion. Slight discomofrt posteriorly to elevate but can contract and resist without increased pain. Scap AROM symmetrical and strength 4-/5. Has some winging in R scapula showing some serratus weakness but normal with VC. - Balance/Special Test Scores Quick DASH Score: 50.0000 - Goals Goal 1:: Pt feel back to full ROM and acitvity as evidenced by not feeling like she needs to return to therapy in next 2 weeks. Goal Time Frame: 2-4 Weeks - Rehabilitation Potential Physical Therapy Diagnosis: Healing R shoulder contusion limiting sleeping and function, improving rapidly. Rehabilitation Potential: Good - Anticipated Interventions Patient/Client Instruction: Educate patient on: Condition, Plan of Care For the Purpose of:: To decrease pain, To increase tolerance to activity/condition/position Therapeutic Exercise to Include: Strength training, Active ROM For the Purpose of:: To decrease pain, To increase tolerance to activity/condition/position Thank you for the opportunity to evaluate your patient. For Medicare and Medicare HMO plans, please review the plan of care and approve it. It will need to be FAXED BACK to us at [phone] for Medicare purposes. For Medicare only, by signing this I certify the plan of care. Please let me know if there are questions or concerns regarding this plan of care. Physician Signature: Date :
--- NOTE | 2021-12-12 08:07 | HP.PTDCNRP_ITS ---
DARWIN BOLAÑOS was seen in my office for initial evaluation on 10/13/21. The following Plan of Care was established for this patient: Initial Frequency: f/u this month as needed Patient/Client Instruction: Educate patient on: Condition, Plan of Care For the Purpose of:: To decrease pain, To increase tolerance to activity/condition/position Therapeutic Exercise to Include: Strength training, Active ROM For the Purpose of:: To decrease pain, To increase tolerance to activity/condition/position This patient was last seen in our office 10/13/21. Pertinent comments regarding their Physical therapy will appear below: Pt seen for initial evaluation and was doing well. Plan was to discharge in two weeeks unless patient called and needed more therapy. She has not called to schedule adn it has been two months, per plan of care, I will discontinue her from my care. At this point I will be discontinuing this patient from physical therapy. I would be happy to see this patient again in the future if found appropriate by t he physician. Thank you! Jonathan Navarrete, DPT, OCS, CSCS Balance/Gait/Functional tests - Balance/Special Test Scores Quick DASH Score: 50.0000
== END 2021-10-13 19:00 | disposition home or self-care (01) ==
LOC: PT 12:53
PROVIDERS: PCP Internal Medicine; Referring Provider Internal Medicine; Visit Provider Internal Medicine
DX: S46.911D Strain of unspecified muscle, fascia and tendon at shoulder and upper arm level, right arm, subsequent encounter (principal); X58.XXXD Exposure to other specified factors, subsequent encounter
CPT/HCPCS: 97161

== ENCOUNTER 2021-12-19 14:06 | Outpatient (CLI) | payer MEDICARE, SELFPAY ==
--- NOTE | 2021-12-19 14:11 | US_ITS ---
STUDY: RENAL ULTRASOUND - COMPLETE REASON FOR EXAM: Female, 56 years old. History of left renal cyst. TECHNIQUE: Ultrasound evaluation of the kidneys was performed with real-time and static guerrero-scale imaging. COMPARISON: Comparison is made with prior examination of 02/03/2021. FINDINGS: RIGHT KIDNEY: Normal location of the right kidney, which is normal in size. The right kidney measures 10.5 cm x 4.87 x 3.6 cm. There is a normal cortex of the right kidney. The renal cortex measures 1.1 cm. There is no right renal mass or cyst. There are no right renal calculi. There is no right hydronephrosis. DISTAL RIGHT URETER: There is non-visualization of the distal right ureter. There is no demonstrated right ureterovesical junction calculus. There is a visualized right ureteral jet. LEFT KIDNEY: Normal location of the left kidney, which is normal in size. The left kidney measures 10.8 cm x 5 cm x 5.5 cm. There is a normal cortex of the left kidney. The renal cortex measures 1.6 cm. There are 2 renal cysts seen. The largest cyst measures 1.3 cm x 1 cm x 1.1 cm. A septation is seen within it. There are no left renal calculi. There is no left hydronephrosis. DISTAL LEFT URETER: There is non-visualization of the distal left ureter. There is no demonstrated left ureterovesical junction calculus. There is a visualized left ureteral jet. BLADDER: The distended urinary bladder has a volume of 348 ml. There is a normal wall thickness of the distended urinary bladder. There is no demonstrated mass within the urinary bladder. There are no demonstrated bladder calculi. US/Kidney and Bladder IMPRESSION: Stable left renal cysts. Electronically Signed: Ari Lemus MD at 15:28 EST , Service support ,
== END 2021-12-19 23:59 | disposition short-term general hospital (02) ==
PROVIDERS: PCP Internal Medicine; Referring Provider Internal Medicine; Visit Provider Internal Medicine
DX: N28.1 Cyst of kidney, acquired (principal)
CPT/HCPCS: 76770

== ENCOUNTER 2022-01-28 15:48 | Outpatient (CLI) | payer MEDICARE, SELFPAY ==
--- NOTE | 2022-01-28 | LIP_PTH ---
PATIENT: DARWIN BOLAÑOS LOC: [facility] U#:[id number] AGE/SX: 56/F ROOM: RE01/28/[address]: Dr. Michelet Cruz MD : 1965 BED: DIS: 01/28/2022 SPEC #: [id number] RECD: 01/28/22 15:34 STATUS: TUNDE ZIMMER #: [id number] LILY: 01/28/22 00:[address]: Michelet Cruz DEPT: SURGICAL PATHOLOGY RECD BY: Thomas Mena ENTERED: 01/29/22 10:45 SP TYPE: LIPOMA OTHR DR: Dr. Luisa Coffey MD Tissues: Soft tissues, NOS Procedures: Surgery Specimen Level III HEADER OPERATION: Excision upper back lipoma PRE-OP DIAGNOSIS: Lipoma, trunk TISSUE SUBMITTED: Back lipoma MICROSCOPIC DIAGNOSIS Lipoma back, excision: Mature adipose tissue, consistent with lipoma. SJ:mayelin 01/30/2022 MICROSCOPIC DESCRIPTION Slides are reviewed. GROSS DESCRIPTION Received in fixative is one container labeled with the patient's name and designated lipoma back. The specimen consists of multiple irregular fragments of yellow adipose tissue that in aggregate measure 5 x 3.5 x 2.5 cm. Sections reveal yellow adipose cut surfaces without areas of hemorrhage, necrosis or cystic degeneration. Massage Therapy Instructor sections are submitted in three cassettes. / CHANTAL:mayelin 01/29/2022 TC:1 CPT: 53196
== END 2022-01-28 23:59 | disposition home or self-care (01) ==
LOC: LABSPEC 15:48
PROVIDERS: PCP Internal Medicine; Visit Provider Surgery
DX: D17.1 Benign lipomatous neoplasm of skin and subcutaneous tissue of trunk (principal)
CPT/HCPCS: 88304

== ENCOUNTER 2022-06-23 06:33 | Day surgery (SDC) | payer MEDICARE, SELFPAY ==
[2022-06-23] VITALS (12 sets, daily range): BP systolic 120–153; BP diastolic 83–90; PULSE 61–67; RESP 16–18; TEMP 36.4–37.2; O2SAT 98–100; BMI 21.2
--- NOTE | 2022-06-23 06:54 | PCM.HP.STD ---
[facility] - [facility] Date of Service: 06/23/22 Chief Complaint: Screening for intestinal cancer [facility] Narrative DARWIN BOLAÑOS, is a 56 F who presents for screening colonoscopy. She had a previous colonoscopy 10 years ago. She has adrenal insufficiency. It is requested by her primary care that she be given Solu-Cortef preprocedure and that will be arranged. December 2020 I assisted her with an upper endoscopy she had a hiatal hernia and some gastritis. She is not currently complaining of any issues with that. No family history of colon cancer. 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 Hemorrhoids History of back problems History of edema HTN (hypertension) Hypokalemia Hypopituitarism Hypothyroid Low iron Neuropathy Reflux gastritis Home Medications biotin 2,500 mcg capsule 5,000 mcg PO DAILY 05/28/17 [History Last Taken Unknown] hydrocortisone 10 mg tablet 5 mg PO 4X/DAY 05/28/17 [History Last Taken Unknown] liothyronine 5 mcg tablet (Cytomel) 10 mcg PO DAILY thyroid 05/28/17 [History Last Taken Unknown] metoprolol succinate 25 mg tablet,extended release 24 hr 25 mg PO DAILY 05/28/17 [History Last Taken Unknown] naproxen 500 mg tablet 500 mg PO BID PRN PRN Pain 05/28/17 [History Last Taken Unknown] quetiapine 100 mg tablet (Seroquel) 300 mg PO QHS 05/28/17 [History Last Taken Unknown] cyclobenzaprine 10 mg tablet 10 mg PO .prn 12/31/20 [History Last Taken Unknown] estradiol-norethindrone acet 1 mg-0.5 mg tablet (Mimvey) 1 tab PO QHS 12/31/20 [History Last Taken Unknown] gabapentin 300 mg capsule 600 mg PO BID 12/31/20 [History Last Taken Unknown] ibuprofen 800 mg tablet 800 mg PO .prn 12/31/20 [History Last Taken Unknown] lamotrigine 200 mg tablet (Lamictal) 200 mg PO DAILY 12/31/20 [History Last Taken Unknown] lorazepam 0.5 mg tablet (Ativan) 0.5 mg PO Q6H PRN Anxiety 12/31/20 [History Last Taken Unknown] losartan 100 mg tablet 100 mg PO DAILY 12/31/20 [History Last Taken Unknown] meloxicam 15 mg tablet (Mobic) 15 mg PO .prn 12/31/20 [History Last Taken Unknown] ergocalciferol (vitamin D2) 1,250 mcg (50,000 unit) capsule 1,250 mcg PO QMONTH 01/17/21 [History Last Taken Unknown] ferrous sulfate 105 mg-C 500 mg-folic acid 800 mcg tablet,extend.rel 1 ea PO DAILY 01/17/21 [History Last Taken Unknown] liothyronine 5 mcg tablet 5 mcg PO LUNCH thyroid 01/17/21 [History Last Taken Unknown] sennosides 8.6 mg-docusate sodium 50 mg tablet 2 ea PO QHS 01/17/21 [History Last Taken Unknown] hydrochlorothiazide 25 mg tablet 25 mg PO DAILY PRN swelling 12/26/21 [History Last Taken Unknown] hydrocortisone sod succinate 100 mg solution for injection (Solu-Cortef) 100 mg IM ONCE PRN Diarrhea 12/26/21 [History Last Taken Unknown] potassium chloride 20 mEq oral packet 20 meq PO DAILY PRN supplement 12/26/21 [History Last Taken Unknown] prasterone (dhea) 25 mg tablet (DHEA) 50 mg PO .BI WEEKLY testosterone for females 12/26/21 [History Last Taken Unknown] sucralfate 1 gram tablet (Carafate) 1 g PO QACHS PRN Stomach Upset 12/26/21 [History Last Taken Unknown] levothyroxine 50 mcg tablet 100 mcg PO DAILY 05/05/22 [History Last Taken Unknown] minerals 1 tab PO DAILY 05/05/22 [History Last Taken Unknown] zolpidem 10 mg tablet (Ambien) 10 mg PO QHS PRN Insomnia 05/05/22 [History Last Taken Unknown] calcium carb,cit ER 600 mg-vit D3 12.5 mcg (500 unit) tablet,ext.rel (Citracal-D3 Slow Release) 1 tab PO DAILY 06/18/22 [History Last Taken Unknown] vitamin B complex 2 cap PO DAILY 06/18/22 [History Last Taken Unknown] Allergy/AdvReac Type Severity Reaction Status Date / Time Penicillins Allergy Rash Verified 06/18/22 09:22 Family History Mother Arthritis Hypertension Father Cancer AML Sister Breast cancer Hypertension Daughter Breast cancer Grandfather Stomach cancer Surgical History History of colonoscopy History of umbilical hernia repair S/P bilateral foot surgery s/p bladder sling S/P hemorrhoidectomy S/P joint replacement Status post selective transsphenoidal pituitary adenomectomy Social History Smoking Status: Never smoker alcohol intake: current ROS Constitutional Constitutional: Reports systems reviewed and no addt'l complaints, except as documented Cardiovascular Cardiovascular: Denies chest pain Respiratory/Chest Respiratory/Chest: Denies shortness of breath at rest Gastrointestinal Gastrointestinal: Denies abdominal pain, change in bowel habits, hematochezia or melena Physical Exam Const alert, oriented x3 and no apparent distress General Appearance: cooperative and comfortable Eyes General Eye: normal appearance of both eyes Neck General: normal visual inspection Chest inspection of chest normal Resp Effort and Inspection: able to speak in complete sentences and symmetric chest movement Auscultation: clear to auscultation bilaterally Cardio regular rate and regular rhythm GI soft to palpation, non-tender and non-distended Extremity no calf tenderness Neuro oriented x3 Psych thought process normal Assessment & Plan Assessment/Plan (1) Encounter for screening for malignant neoplasm of colon: PLAN: Plan to proceed with a screening colonoscopy today with possible biopsy or polypectomy as indicated. She is aware of the technique, benefit, risk and alternatives. She presents via open access today. We will proceed as noted. Michelet Cruz M.D., F.A.C.S.
[2022-06-23] MEDS: Lactated Ringers 1,000 ML 15 ML IV (07:24)
[2022-06-23] MEDS: Midazolam 5 MG/ML Syringe (07:43)
--- NOTE | 2022-06-23 08:08 | OP.COLON_ITS ---
Patient Name: Gayathri Noyola Procedure Date: 06/23/2022 7:37 AM Date of : 1965 Age: 56 Procedure: Colonoscopy Indications: Screening for colorectal malignant neoplasm Providers: Michelet Cruz MD Medicines: Midazolam 4.5 mg IV, Meperidine 100 mg IV Patient Profile: Last Colonoscopy: 10 years ago. Complications: No immediate complications. Procedure: Pre-Anesthesia Assessment: - Prior to the procedure, a History and Physical was performed, and patient medications and allergies were reviewed. The patient's tolerance of previous anesthesia was also reviewed. The risks and benefits of the procedure and the sedation options and risks were discussed with the patient. All questions were answered, and informed consent was obtained. Prior Anticoagulants: The patient has taken no previous anticoagulant or antiplatelet agents. ASA Grade Assessment: II - A patient with mild systemic disease. After reviewing the risks and benefits, the patient was deemed in satisfactory condition to undergo the procedure. After I obtained informed consent, the scope was passed under direct vision. Throughout the procedure, the patient's blood pressure, pulse, and oxygen saturations were monitored continuously. The pediatric colonoscope was introduced through the anus and advanced to the cecum, identified by appendiceal orifice and ileocecal valve. The colonoscopy was performed without difficulty. The patient tolerated the procedure well. The quality of the bowel preparation was adequate to identify polyps. The ileocecal valve and the appendiceal orifice were photographed. Moderate Sedation: Moderate (conscious) sedation was personally administered by the endoscopist. The following parameters were monitored: oxygen saturation, heart rate, blood pressure, and response to care. Total physician intraservice time was 15 minutes. Scope In: 7:48:02 AM Scope Withdrawal Time 0 hours 7 minutes 25 seconds Scope Out: 8:03:05 AM Total Procedure Duration Time 0 hours 15 minutes 3 seconds Findings: The digital rectal exam findings include anal stricture, non-thrombosed external hemorrhoids, non-thrombosed internal hemorrhoids and internal hemorrhoids that prolapse with straining, but spontaneously regress to the resting position (Grade II). A diffuse area of moderate melanosis was found in the entire colon. Multiple diverticula were found in the sigmoid colon and descending colon. The colon (entire examined portion) was moderately tortuous. Advancing the scope required using manual pressure. Impression: - Anal stricture, non-thrombosed external hemorrhoids, non-thrombosed internal hemorrhoids and internal hemorrhoids that prolapse with straining, but spontaneously regress to the resting position (Grade II) found on digital rectal exam. - Melanosis in the colon. - Diverticulosis in the sigmoid colon and in the descending colon. - Tortuous colon. - No specimens collected. Recommendation: - Discharge patient to home. - Resume previous diet. - Continue present medications. - Repeat colonoscopy in 10 years for screening purposes. Procedure Code(s): --- Professional --- 00853, Colonoscopy, flexible; diagnostic, including collection of specimen(s) by brushing or washing, when performed (separate procedure) 72810, 59, Moderate sedation services provided by the same physician or other qualified health childcare director performing the diagnostic or therapeutic service that the sedation supports, requiring the presence of an independent trained observer to assist in the monitoring of the patient's level of consciousness and physiological status; initial 15 minutes of intraservice time, patient age 5 years or older Diagnosis Code(s): --- Professional --- Z12.11, Encounter for screening for malignant neoplasm of colon K62.4, Stenosis of anus and rectum K63.89, Other specified diseases of intestine K64.1, Second degree hemorrhoids K64.4, Residual hemorrhoidal skin tags K57.30, Diverticulosis of large intestine without perforation or abscess without bleeding Q43.8, Other specified congenital malformations of intestine CPT copyright 2017 [employer]. All rights reserved. The codes documented in this report are preliminary and upon anthropologist physical review may be revised to meet current compliance requirements. Michelet Cruz MD 06/23/2022 8:08:18 AM This report has been signed electronically. Number of Addenda: 0 Note Initiated On: 06/23/2022 7:37 AM
--- NOTE | 2022-06-23 08:09 | OP.CCLET_ITS ---
06/23/2022 Luisa Coffey Re : Colonoscopy procedure for Gayathri Noyola Dear Alexx This procedure was performed on Thursday, June 23, 2022. My impressions and recommendations are as follows: Impressions : - Anal stricture, non-thrombosed external hemorrhoids, non-thrombosed internal hemorrhoids and internal hemorrhoids that prolapse with straining, but spontaneously regress to the resting position (Grade II) found on digital rectal exam. - Melanosis in the colon. - Diverticulosis in the sigmoid colon and in the descending colon. - Tortuous colon. - No specimens collected. Recommendations : - Discharge patient to home. - Resume previous diet. - Continue present medications. - Repeat colonoscopy in 10 years for screening purposes. My findings are described in the full procedure note, which is enclosed. If I can be of further assistance, please feel free to contact me at Doctor phone number(s): Work: . Sincerely, iMchelet Cruz MD 06/23/2022 8:08:18 AM This report has been signed electronically.
== END 2022-06-23 08:57 | disposition home or self-care (01) ==
LOC: EN 06:34 → AC 06:36
PROVIDERS: PCP Internal Medicine; Referring Provider Internal Medicine; Visit Provider Surgery
PROC: 0DJD8ZZ Inspection of Lower Intestinal Tract, Via Natural or Artificial Opening Endoscopic (ICD-10-PCS; CPT 45378; principal; 2022-06-23 07:25)
DX: Z12.11 Encounter for screening for malignant neoplasm of colon (principal); F31.9 Bipolar disorder, unspecified; K62.4 Stenosis of anus and rectum; Q43.8 Other specified congenital malformations of intestine; K63.89 Other specified diseases of intestine; K64.4 Residual hemorrhoidal skin tags; K64.1 Second degree hemorrhoids; E03.9 Hypothyroidism, unspecified; I10 Essential (primary) hypertension; Z79.899 Other long term (current) drug therapy; Z80.0 Family history of malignant neoplasm of digestive organs
CPT/HCPCS: 45378; 99152; 99153; J7120

== ENCOUNTER → 2022-06-25 | Outpatient (CLI) | payer MEDICARE, SELFPAY ==
--- NOTE | 2022-06-25 10:19 | BI_ITS ---
MAMMOGRAPHY - BILATERAL SCREENING REASON FOR EXAM: Female, 56 years old. Routine annual screening examination. PERTINENT HISTORY: Non-contributory. TECHNIQUE: Digital bilateral breast stanton (3D mammographic acquisition) in the CC and MLO projections. 2-D mediolateral oblique (MLO) and craniocaudad (CC) views of both breasts were obtained. CAD: Full Field Digital Mammography with Computer Added Detection was performed. COMPARISON: Comparison is made with prior examination of 06/12/2020 and 03/05/2017. FINDINGS: Breast Composition: The breasts are heterogeneously dense, which may obscure small masses. Stable small benign-appearing bilateral axillary lymph nodes. There is a 7.1 mm x 5.9 mm slightly degraded nodule in the upper lateral aspect of the right breast. Correlation with ultrasound is recommended. No other significant abnormalities are identified. BI/SCRN MAMM (CAD)W/STANTON BILAT IMPRESSION: 7.1 mm x 5.9 mm slightly spiculated nodule in the upper outer quadrant of the right breast. Correlation with ultrasound is recommended. ASSESSMENT CATEGORY: BIRADS Category 0: Incomplete. Need additional imaging evaluation. A letter regarding these results will be sent to the patient by the facility within 30 days. Approximately 10% of breast cancers are not detected by mammography. A normal mammogram should not delay biopsy of a clinically suspicious abnormality. [id number] Electronically Signed: Ari Lemus MD at 11:10 EDT ,
--- NOTE | 2022-06-25 10:26 | BD_ITS ---
STUDY: DUAL ENERGY X-RAY ABSORPTIOMETRY / DXA REASON FOR EXAM: Female, 56 years old. M85.89 TECHNIQUE: Bone Mineral Density (BMD) measurements of lumbar spine and bilateral hips were obtained. COMPARISON: Comparison is made with prior study dated 06/12/2020. FINDINGS: Lumbar Spine (L1-L4): g/cm2 (1.037) / T-score (0.0) / Z-score (1.2) Findings are suggestive of normal bone density with a low fracture risk. Left Femur Total: g/cm2 (0.884) / T-score (-0.5) / Z-score (0.3) Left Femoral Neck: g/cm2 (0.717) / T-score (-1.2) / Z-score (-0.1) Right Femur Total: g/cm2 (0.908) / T-score (-0.3) / Z-score (0.5) Right Femoral Neck: g/cm2 (0.73) / T-score (-0.6) / Z-score (0.5) The T-Scores on the most recent prior examination were: Lumbar Spine (L1-L4): There has been improvement of bone density since the previous examination. Left Femur Total: which represents a worsening of 1.9%. Right Femur Total: which represents an improvement of 3.2%. BD/Dexa Bone Density Study IMPRESSION: The patient is considered osteopenic as outlined below according to World Francois Organization (WHO) criteria with a low fracture risk. There has been improvement of bone density since the previous examination. Reference Information: The T-score is the number of standard deviations above or below the standard which is normal for young adults at their peak bone mineral density. The World Health Organization (WHO) interprets the T-scores as follows: Above -1 Normal bone density Between -1 and -2.5 Osteopenia Equal to / or below -2.5 Osteoporosis As a practical clinical guideline, osteopenia may be graded as follows: Mild -1 through -1.5 Moderate -1.6 through -2.0 Severe -2.1 through -2.4 The Z-score is the number of standard deviations above or below age-matched controls. A Z-score of less than -1.5 would be considered abnormal. References: 1. NIH Osteoporosis and Related Bone Diseases www osteo.org 2. International Society for Clinical Densitometry www iscd.org 3. National Osteoporosis Foundation www nof.org Electronically Signed: Ari Lemus MD at 10:01 EDT ,
== END | disposition home or self-care (01) ==
LOC: OPBD 10:18
PROVIDERS: PCP Internal Medicine; Referring Provider Internal Medicine; Visit Provider Internal Medicine
DX: M85.89 Other specified disorders of bone density and structure, multiple sites (principal); Z12.31 Encounter for screening mammogram for malignant neoplasm of breast
CPT/HCPCS: 77063; 77067; 77080

== ENCOUNTER → 2022-06-26 | Outpatient (CLI) | payer MEDICARE, SELFPAY ==
--- NOTE | 2022-06-26 08:42 | US_ITS ---
STUDY: ULTRASOUND BREAST - RIGHT REASON FOR EXAM: Female, 56 years old. Abnormal screening mammogram. TECHNIQUE: Axial and longitudinal images of the RIGHT breast were performed with a high resolution ultrasound transducer. # OF IMAGES: 22 COMPARISON: Comparison is made with prior mammogram dated 06/25/2022. FINDINGS: RIGHT Breast: There is an 8 mm x 6 mm x 4 mm complex cystic nodule at the 9 o''clock position of the breast at 3 cm from nipple. Biopsy recommended. US/Breast Limited Unilateral IMPRESSION: Complex cystic nodule measuring 8 mm x 6 mm x 4 mm at the 9 o''clock position of the breast 3 cm from the nipple. Biopsy is recommended. ASSESSMENT CATEGORY: BIRADS Category 4: Suspicious - Biopsy Should Be Considered. A letter regarding these results will be sent to the patient by the facility within 30 days. Electronically Signed: Ari Lemus MD at 9:47 EDT ,
== END | disposition home or self-care (01) ==
PROVIDERS: PCP Internal Medicine; Visit Provider Internal Medicine
DX: R92.8 Other abnormal and inconclusive findings on diagnostic imaging of breast (principal)
CPT/HCPCS: 76642

== ENCOUNTER → 2022-06-29 | Outpatient (CLI) | payer MEDICARE, SELFPAY ==
--- NOTE | 2022-06-29 09:20 | BRBX_PTH ---
PATIENT: DARWIN BOLAÑOS LOC: [facility] U#:[id number] AGE/SX: 56/F ROOM: RE06/29/[address]: Dr. Michelet Cruz MD : 1965 BED: DIS: 06/29/2022 SPEC #: [id number] RECD: 06/29/22 11:31 STATUS: TUNDE ZIMMER #: [id number] LILY: 06/29/22 09:[address]: Michelet Cruz DEPT: SURGICAL PATHOLOGY RECD BY: Yani Garcia ENTERED: 06/29/22 12:24 SP TYPE: BREAST BX OTHR DR: Dr. Luisa Coffey MD Tissues: Right breast, NOS Procedures: Surgery Specimen Level IV HEADER OPERATION: Right breast biopsy PRE-OP DIAGNOSIS: Abnormal mammogram/ultrasound right TISSUE SUBMITTED: Right breast tissue MICROSCOPIC DIAGNOSIS Right breast, core biopsy: Focal fibrocystic changes. Negative for atypia or malignancy. See comment. SJ:mayelin 06/30/2022 COMMENT Correlation with clinical, radiologic findings and appropriate follow up are necessary. Case has been reviewed in consultation with Dr. Hernandez who concurs with the above diagnosis. IDC:AM MICROSCOPIC DESCRIPTION Slides are reviewed. GROSS DESCRIPTION Received in fixative is one container labeled with the patient's name and designated right breast. The specimen consists of a piece of kerr-yellow fibroadipose tissue measuring 0.5 x 0.2 x 0.2 cm. The entire specimen is submitted in one cassette. / CHANTAL:mayelin 06/29/2022 TC:4 CPT: 93185
--- NOTE | 2022-06-29 10:29 | BI_ITS ---
MAMMOGRAPHY - UNILATERAL DIAGNOSTIC: RIGHT BREAST REASON FOR EXAM: Female, 56 years old. Ultrasound-guided biopsy. Clip placement images. PERTINENT HISTORY: Non-contributory except of a. TECHNIQUE: Digital examination. Mediolateral oblique (MLO) and craniocaudad (CC) views of the breast were obtained. CAD: CAD was not performed on this study. COMPARISON: 06/25/2022. FINDINGS: Breast Composition: There are scattered areas of fibroglandular density. Clips identified in the upper outer quadrant of the right breast. There are no dominant masses or suspicious calcifications. BI/DIAG MAMM W/CAD, UNILAT IMPRESSION: Clip projected over the upper outer quadrant of the right breast. ASSESSMENT CATEGORY: BIRADS Category 2: Benign. A letter regarding these results will be sent to the patient by the facility within 30 days. FOLLOW-UP RECOMMENDATION: Yearly follow-up mammogram recommended. (A) Approximately 10% of breast cancers are not detected by mammography. A normal mammogram should not delay biopsy of a clinically suspicious abnormality. Electronically Signed: Toni Light MD at 10:47 EDT ,
== END | disposition home or self-care (01) ==
PROVIDERS: PCP Internal Medicine; Visit Provider Surgery
DX: R92.8 Other abnormal and inconclusive findings on diagnostic imaging of breast (principal)
CPT/HCPCS: 77065; 88305

== ENCOUNTER 2022-09-03 12:30 | Outpatient (RCR) | payer MEDICARE, SELFPAY ==
--- NOTE | 2022-07-22 09:41 | HP.PTEVAL_ITS ---
Patient's Visit Information DARWIN BOLAÑOS is a 56 year old F referred to Physical Therapy by Dr. Luisa Coffey MD with a diagnosis of DDD. Date of Evaluation: 07/22/22 Physical Therapist: Jonathan Navarrete, JORDIT, OCS, CSCS - Visit Plan Frequency: 2x /Week Duration: 4-6 Weeks Plan: 2x/week for 4-6 weeks as needed for. 1. NS position and core strength mat to band. 2. LB ROM flexion, ext, SB progress to yoga stretches. 3. TENS and STM and MH as needed. - Subjective Something caused LB to become intensly painful. Maybe moving a pony cart pushing uphill. That was 2 months ago. For a long time has had to sit on ground to pull weeds and take break every 5 minutes. Pain after that incident was horrible. Pain is B in LB. Bone density showed possible L1 compression fracture but x rays show DDD. Dr Coffey wants PT adn MRI if it does not improve. Has had steorid injections and ablations in the distant past. Pain this week has been 3/10. At times up to 8/10 and has to stop and catch breath but happens alot. Takes flexeril and motrin and tylenol. They help but she does not like to do that. Sleep is interrupted as she needs to lie on ice at times before bed. Has stopped picking up grandkids and carrying things because it hurts. Oliverio tomato. sauce hurt standing in one spot. Does not want to go to pain management issues right away and wishes to try therapy first. Cannot walk whcih she loves to do 3 miles per day, tried it a week ago and was very bad upon arriving back home. Does a lot of stretching and does some planking. Planking seems to help. Stretching of arms a nd legs hurts while she does it. Massage do es not help. - Pain LBP Pain Intensity (Out of 10): 3 Pain Intensity Range: 3, 8 - Objective Walks normal into PT, trasnfer I. Sits with straight spine taking weight off with hands. Butt slid out in chair but maintains straight spine. reflexes 2/3 patella and achilles. Sensation LE WNL to gross light touch. Strength LE 4-/5, core strength 4-/5 abs and ext. PA pressure not painful but tender in lumbar soft tissue. Repeated extension worsens symptoms. trunk rotation improves with repetition. Pt does not like to flex spine and has hard time coming up from standing flexion. Good pelvic mobility. - slump. - SLR. flexibillity LE excellent. - Balance/Special Test Scores Oswestry Low Back Score: 21 - Goals Goal 1:: Pain 0-1/10 at allt imes in LB and 80% improved. Goal Time Frame: 4-6 Weeks Goal 2:: I approp HEp and NS position to limit future problems Goal Time Frame: 4-6 Weeks Goal 3:: dishwashing without increased pain. Goal Time Frame: 4-6 Weeks Goal 4:: walk 3 miles without a problem Goal Time Frame: 4-6 Weeks Goal 5:: <10 oswestry score Goal Time Frame: 4-6 Weeks - Rehabilitation Potential Physical Therapy Diagnosis: LBP, DDD effecting function Rehabilitation Potential: Good - Anticipated Interventions Patient/Client Instruction: Educate patient on: Condition, Plan of Care For the Purpose of:: To decrease pain, To increase ROM, To improve muscle performance and motor function, To increase tolerance to activity/condition/position Therapeutic Exercise to Include: Strength training, Flexibilty training, Passive ROM, Active ROM, Dynamic Lumbar Stabilization For the Purpose of:: To decrease pain, To increase ROM, To improve muscle performance and motor function, To increase tolerance to activity/condition/position, To improve ability of physical actions for home/community/work/leisure Manual Therapy Techniques to Include: Mobilization, Passive ROM, Soft tissue mobilization For the Purpose of:: To decrease pain, To increase ROM, To improve muscle performance and motor function TENS: Yes Thermo therapy (hot pack): Yes For the Purpose of:: To decrease pain, To increase ROM, To improve muscle performance and motor function Thank you for the opportunity to evaluate your patient. For Medicare and Medicare HMO plans, please review the plan of care and approve it. It will need to be FAXED BACK to us at [phone] for Medicare purposes. For Medicare only, by signing this I certify the plan of care. Please let me know if there are questions or concerns regarding this plan of care. Physician Signature: Date:
--- NOTE | 2022-09-03 12:57 | HP.PTDCSUM ---
It has been my pleasure to treat DARWIN BOLAÑOS referred by Dr. Luisa Coffey MD, with the diagnosis of DDD for a total of 10 visit(s). Discharge Date: 09/03/22 Please see the following information for a summary of their discharge status. Subjective: Walking 3 miles without a problem, helps mentally. Got injection in L shoulder which did not help. Activities are normal except heavy strenuous activities like sports volleyball etc. had no problem with the gym exercises. B hips laterally can feel tight and she did get injections in hip. thoracic area is always tight and bothersome. LBP Pain Intensity (Out of 10): 2 L shoulder Pain Intensity (Out of 10): 3 % Improvement: 60 Objective/Function: Lumbar ROM very good and without pain, still feels stiff to patient. thoracic rotation is symmetrical bu ttight and feels good to stretch. Bending and transitioning without problems today. Goal 1:: Pain 0-1/10 at allt imes in LB and 80% improved. Goal Progress: Progressing Goal 2:: I approp HEp and NS position to limit future problems Goal Progress: Goal Met Goal 3:: dishwashing without increased pain. Goal Progress: Goal Met Goal 4:: walk 3 miles without a problem Goal Progress: Goal Met Goal 5:: <10 oswestry score Goal Progress: Progressing Plan: d/c Discharge Comments: Pt to continue in gym and add thoracic rotation adn foam roller thoracic stretch for thoracic tightness. If there are questions or concerns regarding this patient's physical therapy, please feel free to call me at [phone]. Thank you for the referral of this patient. Sincerely, Jonathan Navarrete, DPT, OCS, CSCS Balance/Gait/Functional tests - Balance/Special Test Scores Oswestry Low Back Score: 11
== END 2022-09-03 13:03 | disposition home or self-care (01) ==
LOC: PT 12:30
PROVIDERS: PCP Internal Medicine; Referring Provider Internal Medicine; Visit Provider Internal Medicine
DX: M54.50 Low back pain, unspecified (principal)
CPT/HCPCS: 97014; 97110; 97162; 97164; G0283

== ENCOUNTER → 2022-09-22 | Outpatient (CLI) | payer MEDICARE, SELFPAY ==
--- NOTE | 2022-09-22 13:00 | MRI_ITS ---
STUDY: MRI CERVICAL SPINE WITHOUT CONTRAST REASON FOR EXAM: Female, 56 years old. spinal stenosis TECHNIQUE: Standardized fat and water weighted pulse sequences were obtained in the sagittal and axial planes. COMPARISON: None FINDINGS: Normal foramen magnum and brainstem-cervical cord junction. Normal craniovertebral junction. Normal anterior atlantoaxial articulation. Normal odontoid process. Decreased cervical lordosis. Normal vertebral bodies and posterior osseous elements. C2-3: Normal endplates. Normal disc height, signal and tiny central disc protrusion.. Normal central canal and intervertebral neural foramina. C3-4: Grade 1 spondylolisthesis. Mildly narrowed disc space with bulging disc osteophyte complex. Normal central canal. Normal bilateral neuroforamina C4-5: Normal endplates. Normal disc height, signal and tiny central disc protrusion. Normal central canal and intervertebral neural foramina. C5-6: Grade 1 retrolisthesis. Narrowed disc space with mild bulging disc osteophyte complex.. Mild narrowing of the central canal. Normal bilateral neuroforamina C6-7: Grade 1 retrolisthesis. Narrowed disc space with desiccation of disc and minor bulging disc osteophyte complex. Normal central canal and bilateral neuroforamina C7-T1: Grade 1 spondylolisthesis. Narrowed disc space and mild bulging disc osteophyte complex. Normal central canal and intervertebral neural foramina. Normal cervical cord. Normal visualized soft tissue structures. MRI/Spine Cervical (Routine) IMPRESSION: No acute fracture or other significant bony pathology. Advanced degenerative changes and multilevel bulging disc osteophyte complexes.. Mild narrowing the central canal at C5-6 without cord compression Electronically Signed: Rivera Riley MD at 16:41 EDT ,
--- NOTE | 2022-09-22 13:45 | MRI_ITS ---
STUDY: MRI LUMBAR SPINE WITHOUT CONTRAST REASON FOR EXAM: Female, 56 years old. SPINAL STENOSIS, back pain TECHNIQUE: Standardized fat and water weighted pulse sequences were obtained in the sagittal and axial planes. COMPARISON: Lumbar spine radiographs 07/06/2022. FINDINGS: Alignment similar to prior with moderate to severe left scoliosis centered at L1. Sagittal alignment anatomic. Disc space loss and degenerative endplate irregularity and signal changes along the inner aspect of the scoliotic curvature at L2-3 and to a lesser extent lateral aspect of L4-5. Schmorl''s node T11 superior endplate. CONUS terminates at the level of the mid L1 vertebral body with normal contour and signal. Thecal sac terminates at the upper S2 level. Paraspinal soft tissues unremarkable. At L1-2, small diffuse disc bulge causes no significant narrowing. At L2-3, diffuse disc bulge and mild facet degeneration combines with left scoliotic curvature to cause mild narrowing of both subarticular zones, worse on the right. Disc mildly displaced posteriorly but does not compress the traversing right L3 nerve root, and abuts but does not displace the traversing left L3 nerve root. The foramina are patent. At L3-4, diffuse disc bulge with superimposed left sided protrusion moderately narrows the left subarticular zone, displacing posteriorly and possibly compressing the traversing left L4 nerve root. Disc extends into and moderately narrows both foramina, abutting but not compressing the exiting bilateral L3 nerve roots. L4-5, disc and osteophyte extend into and mildly narrows the left foramen. Spinal canal and right foramen patent. At L5-S1, small left paracentral disc protrusion with annular tear causes no significant narrowing. MRI/Spine Lumbar (Routine) IMPRESSION: Moderate left scoliosis centered at L1. Prominent disc degeneration at L2-3 associated with the scoliotic curvature; this could cause discogenic pain. Degenerative changes at L3-4 which could cause left L4 radiculopathy. Electronically Signed: Conrado Casper MD at 6:18 EDT Reading Location ID and State: [facility] / [place] Tel , Service support ,
== END | disposition home or self-care (01) ==
PROVIDERS: PCP Internal Medicine; Referring Provider Orthopaedic Surgery; Visit Provider Orthopaedic Surgery
DX: M48.02 Spinal stenosis, cervical region (principal); M48.062 Spinal stenosis, lumbar region with neurogenic claudication
CPT/HCPCS: 72141; 72148

== ENCOUNTER → 2022-10-06 | Outpatient (CLI) | payer MEDICARE, SELFPAY ==
--- NOTE | 2022-10-06 11:28 | US_ITS ---
STUDY: ULTRASOUND OF THE FEMALE PELVIS - COMPLETE REASON FOR EXAM: Female, 57 years old. PMB (postmenopausal bleeding) LMP: The patient is postmenopausal. TECHNIQUE: Transabdominal TECHNICAL QUALITY: Adequate. COMPARISON: None. FINDINGS: The uterus is anteverted and is in a midline position. The uterus measures 8.7 cm x 5.4 cm x 3.5 cm. Normal uterine cervix. The endometrium is thickened and measures 4.5 mm in thickness, and is hyperechoic. There is no demonstrated endometrial mass. There is a 2.3 cm x 1.5 cm x 2 cm uterine fibroid. I.U.D. - The patient does not have an I.U.D. The right ovary is visualized. The right ovary measures 2.5 cm x 2.3 cm x 1.1 cm. There is no right ovarian cyst or ovarian mass. There is no visualized right adnexal mass or complex lesion. There is normal arterial and normal venous vascularity. The left ovary is non-visualized due to overlying bowel gas. There is no fluid in the cul-de-sac. US/Transvaginal Non- IMPRESSION: Thickened endometrium. Small uterine fibroid. Electronically Signed: Ari Lemus MD at 15:01 EST ,
== END | disposition home or self-care (01) ==
LOC: OPUS 11:26 → US 11:27
PROVIDERS: PCP Internal Medicine; Referring Provider Internal Medicine; Visit Provider Internal Medicine
DX: N95.0 Postmenopausal bleeding (principal)
CPT/HCPCS: 76830

== ENCOUNTER → 2022-10-19 | Outpatient (CLI) | payer MEDICARE, SELFPAY ==
--- NOTE | 2022-10-19 | EMB_PTH ---
PATIENT: DARWIN BOLAÑOS LOC: [facility] U#:[id number] AGE/SX: 57/F ROOM: RE10/19/[address]: EDOUARD Treviño : 1965 BED: DIS: 10/19/2022 SPEC #: [id number] RECD: 10/19/22 11:44 STATUS: TUNDE REBurt #: [id number] LILY: 10/19/22 00:[address]: Urszula Valladares NP DEPT: SURGICAL PATHOLOGY RECD BY: Yani Garcia ENTERED: 10/19/22 12:40 SP TYPE: ENDOM BX/C DEB DR: Dr. Luisa Coffey MD Tissues: Endometrium, NOS Procedures: Surgery Specimen Level IV HEADER OPERATION: Endometrial biopsy PRE-OP DIAGNOSIS: Postmenopausal bleeding TISSUE SUBMITTED: Endometrial tissue MICROSCOPIC DIAGNOSIS Endometrial biopsy: Weakly proliferative endometrium. CHANTAL:mayelin 10/20/2022 MICROSCOPIC DESCRIPTION Slides are reviewed. GROSS DESCRIPTION Received is one container labeled with the patient's name and not further designated. The specimen consists of multiple fragments of hemorrhagic soft tissue mixed with mucoid tissue that in aggregate measure 1.5 x 1.5 x <0.1 cm. The specimen is totally submitted in one cassette. / SJ:rg 10/19/2022 TC:4 CPT: 62754
== END | disposition home or self-care (01) ==
LOC: LABSPEC 11:56
PROVIDERS: PCP Internal Medicine; Referring Provider Nurse Practitioner Women's Health; Visit Provider Nurse Practitioner Women's Health
DX: N95.0 Postmenopausal bleeding (principal)
CPT/HCPCS: 88305

== ENCOUNTER 2022-11-11 09:51 | Day surgery (SDC) | payer MEDICARE, SELFPAY ==
[2022-11-11 10:24] VITALS: BP 122/77; PULSE 76; RESP 18; TEMP 36.2; O2SAT 100; BMI 22.8
[2022-11-11] MEDS: Lactated Ringers 1,000 ML 15 ML IV ×2 (10:24→11:53)
[2022-11-11] MEDS: Cefazolin 2 GM in 0.9% Normal Saline 100 ML IV (10:46)
[2022-11-11] MEDS: Lidocaine Jelly 2% 20 ML Syringe (URO-JET) 1 APPLIC (11:03)
--- NOTE | 2022-11-11 11:24 | DCINST_ITS ---
Discharge Instructions Diet Discharge Diet: No restrictions, Light diet - advance as tolerated and Soft diet Activity Discharge Activity: Return to Normal Activity Follow Up Care Please Follow Up With: Dave Beard MD Test Results: Test results from this visit will be discussed in further detail at your follow- up appointment, if applicable. Discharge Plan Admission Primary Reason for Your Visit: injection for ISD Attending Provider: Dave Beard Primary Care Provider: Luisa Coffey Discharge Orders/Prescriptions Prescriptions: New ciprofloxacin HCl [Cipro] 500 mg tablet 500 mg PO BID Qty: 6 0RF Continued losartan 100 mg tablet 100 mg PO DAILY gabapentin 300 mg capsule 1,200 mg PO QHS lamotrigine [Lamictal] 200 mg tablet 200 mg PO DAILY estradiol-norethindrone acet [Mimvey] 1-0.5 mg tablet 1 tab PO QODAY ibuprofen 800 mg tablet 800 mg PO .prn meloxicam [Mobic] 15 mg tablet 15 mg PO .prn cyclobenzaprine 10 mg tablet 10 mg PO .prn lorazepam [Ativan] 0.5 mg tablet 0.5 mg PO Q6H PRN (Reason: Anxiety) hydrocortisone sod succinate 100 mg solution for injection 100 mg recon soln 100 mg IM ONCE PRN (Reason: Diarrhea) hydrochlorothiazide 25 mg tablet 25 mg PO QODAY PRN (Reason: SWELLING) potassium chloride 20 mEq packet 20 meq PO DAILY PRN (Reason: supplement) sucralfate [Carafate] 1 gram tablet 1 g PO QACHS PRN (Reason: Stomach Upset) minerals Tablet 1 tab PO DAILY liothyronine [Cytomel] 5 MCG tablet 10 mcg PO BID quetiapine [Seroquel] 100 MG tablet 300 mg PO QHS metoprolol succinate 25 MG tablet extended release 24 hr 25 mg PO DAILY hydrocortisone 10 MG tablet 5 mg PO 4X/DAY naproxen 500 MG tablet 500 mg PO BID PRN PRN (Reason: Pain) biotin 2,500 MCG capsule 5,000 mcg PO DAILY levothyroxine 50 mcg tablet 100 mcg PO DAILY Label Comments: on CASILLAS 150mcg sennosides-docusate sodium 1 EACH tablet 2 ea PO QHS ferrous xytawxl-P-eioix acid 1 EACH tablet extended release 1 ea PO DAILY ergocalciferol (vitamin D2) 1,250 MCG capsule 1,250 mcg PO QMONTH Label Comments: on the 12th of each month calcium carb and citrate-vitD3 [Citracal-D3 Slow Release] 600 mg-12.5 mcg (500 unit) Tablet Extended Release 1 tab PO DAILY vitamin B complex Capsule 2 cap PO DAILY hydrocortisone [Cortef] 5 mg tablet 5 mg PO 4X/DAY Myrbetriq 50 mg tablet extended release 24 hr 50 mg PO DAILY DHEA 50 mg Tablet 50 mg PO MOFR Referrals / Follow Up: Luisa Coffey MD [Primary Care Provider] - Disposition Disposition (needs filled in before D/C Order can be placed): Home, Self Care
--- NOTE | 2022-11-11 11:25 | PCM.OPRPT ---
Report of Operation Date of Procedure: 11/11/22 Pre-Operative Diagnosis: Intrinsic sphincter deficiency Post-Operative Diagnosis: Same Surgery/Procedure Performed:: Cystoscopy and injection of bulking urethral agent into the urethra. Description of Surgical Findings:: 57-year-old female with a history of stress incontinence in the past she underwent a sling procedure several years ago she presented to the office because she has recurrence of her stress incontinence and now she has intrinsic sphincter deficiency by examination. Very fixed urethra not very mobile on exam. We discussed the options of a repeat sling which I recommended against and we discussed the options of doing a urethral bulking agent procedure. She understands that the procedure may not help with her incontinence or if it does help but may be only temporary sometimes up to 6 months sometimes longer may be a year. Risk of the procedure were discussed with the patient risk of bleeding infection, bladder infections and failure to improve bladder control. Patient was taken back to the operating room at a smooth induction of a MAC local she was placed in dorsolithotomy position the urethra and vaginal area prepped and draped in usual sterile fashion lidocaine jelly was placed into the urethra and the bladder 30 cc. I then went in with an offset short straight cystoscope inspected the urethra is fairly gaping wide open urethra. We then prepared the first injection and this was done at the 6 o'clock position about 2.5 cc at 6 o'clock position was injected there was nice coaptation of the urethra mucosa, I then injected again at the 3:00 at the 9 o'clock position. I then used 2 more syringes and did an external approach putting the needle periurethrally and injected another 5 cc in the right side another 5 cc in the left side. After the end of the injection and I looked in with the scope looked at all the mucosa was coapt nicely there was a small tear in the mucosa where some of the Macroplastique was leaking out. I then drained out the bladder completely and then the patient's anesthetic was reversed as long as he can urinate okay she can go home today without a catheter she may have to go home with a small catheter she is not able to urinate. So appear to be a successful injection with good good coaptation of all the urethra and improvement in support of the urethral structures. Surgeon: Dave Beard Type of Anesthesia: MAC and Topical Anesth Drains: none Admit VTE Documentation VTE Present on Admission: No VTE Mechan Device Prophylaxis: SCD's
[2022-11-11 11:36] VITALS: BP 120/83; BP 122/77; PULSE 67; RESP 18; TEMP 36.4; O2SAT 100
[2022-11-11 11:38] VITALS: BP 122/77; BP 124/84; PULSE 64; RESP 18; O2SAT 100
[2022-11-11 11:40] VITALS: BP 122/77; BP 126/82; PULSE 66; RESP 18; O2SAT 98
[2022-11-11 11:45] VITALS: BP 122/77; BP 127/80; PULSE 66; RESP 18; TEMP 36.3; O2SAT 100
[2022-11-11 12:56] VITALS: BP 122/77
== END 2022-11-11 12:57 | disposition home or self-care (01) ==
LOC: SDC 09:55 → AC 09:55
PROVIDERS: PCP Internal Medicine; Visit Provider Urology
PROC: 3E0K8GC Introduction of Other Therapeutic Substance into Genitourinary Tract, Via Natural or Artificial Opening Endoscopic (ICD-10-PCS; CPT 52327; principal; 2022-11-11 11:05)
DX: N36.42 Intrinsic sphincter deficiency (ISD) (principal); N39.3 Stress incontinence (female) (male); R39.15 Urgency of urination; E03.9 Hypothyroidism, unspecified; I10 Essential (primary) hypertension; Z79.899 Other long term (current) drug therapy
CPT/HCPCS: 51715; J7120; J2405

== ENCOUNTER → 2023-01-28 | Outpatient (CLI) | payer MEDICARE, SELFPAY ==
--- NOTE | 2023-01-28 11:53 | RAD_ITS ---
STUDY: X-RAY - THORACIC SPINE REASON FOR EXAM: Female, 57 years old. Pain. TECHNIQUE: 3 view(s) of the thoracic spine were obtained on 5 images. COMPARISON: None. FINDINGS: Normal kyphosis of the thoracic spine. 22 degrees of dextroscoliosis in the lower thoracic spine centered at approximately T7-T9 and 21 degrees of rotatory levoscoliosis of the lumbar spine centered at L1-L3. Diffuse intervertebral disc space narrowing with osteophyte formation most marked at T8-9 and L3-4. Normal soft tissues. RAD/Thoracic Spine 3 Views IMPRESSION: Thoracolumbar scoliosis as described. Mild thoracolumbar spondylosis as described. No acute abnormality. Electronically Signed: Toni Light, at 13:10 EST ,
== END | disposition home or self-care (01) ==
LOC: RAD 11:29
PROVIDERS: PCP Internal Medicine
DX: M47.814 Spondylosis without myelopathy or radiculopathy, thoracic region (principal)
CPT/HCPCS: 72072

== ENCOUNTER → 2023-02-11 | Outpatient (CLI) | payer MEDICARE, SELFPAY ==
--- NOTE | 2023-02-11 17:50 | MRI_ITS ---
HISTORY: SPONDYLOSIS WITHOUT MYELOPATHY OR RADICULOPATHY, THORACIC REGION. TECHNIQUE: Multiplanar and multisequence MR images of the thoracic spine were obtained without intravenous contrast. 163 images. COMPARISON: XR 01/28/2023. FINDINGS: VERTEBRAE: Vertebral body heights maintained. Mild degenerative bone marrow endplate changes. ALIGNMENT: 2 mm anterolisthesis of C7-T1 and T9-10. Mild dextroscoliosis. CORD: Thoracic spinal cord within normal limits in signal and morphology. Normal morphology and position of the conus medullaris at L1. INTERVERTEBRAL DISCS: C7-T1: Mild posterior disc protrusion with minimal narrowing of the thecal sac. No significant foraminal narrowing. T1-2: No significant posterior disc protrusion, central canal stenosis, or foraminal narrowing. T2-3, T3-4: Minimal disc bulges without significant central canal stenosis or foraminal narrowing. T4-5: No significant posterior disc protrusion, central canal stenosis, or foraminal narrowing. T5-6: Mild posterior disc protrusion eccentric to the right abutting the ventral cord with minimal narrowing of the thecal sac and no significant foraminal narrowing. T6-7: Mild disc bulge eccentric to the left without significant central canal stenosis or foraminal narrowing. T7-8: Mild disc bulge with facet arthropathy resulting in minimal narrowing of the thecal sac and mild left foraminal narrowing. T8-9: No significant posterior disc protrusion or central canal stenosis. Facet arthropathy with mild left foraminal narrowing. T9-10, T10-11: Minimal disc bulges with facet arthropathy. Minimal narrowing of the thecal sac and mild bilateral foraminal narrowing. T11-12: No significant posterior disc protrusion, central canal stenosis, or foraminal narrowing. T12-L1: Mild disc bulge and facet arthropathy without significant central canal stenosis or foraminal narrowing. SOFT TISSUES: No paraspinal fluid collection. MRI/Spine Thoracic (Routine) IMPRESSION: Mild degenerative disc disease of the thoracic spine without critical spinal canal stenosis. Mild foraminal narrowing as above. Mild scoliosis. Electronically Signed: Emmy John MD at 15:40 EDT ,
== END | disposition home or self-care (01) ==
PROVIDERS: PCP Internal Medicine
DX: M47.814 Spondylosis without myelopathy or radiculopathy, thoracic region (principal)
CPT/HCPCS: 72146

== ENCOUNTER → 2023-08-05 | Outpatient (CLI) | payer MEDICARE, SELFPAY ==
--- NOTE | 2023-08-05 10:46 | BI_ITS ---
MAMMOGRAPHY - BILATERAL SCREENING REASON FOR EXAM: Female, 57 years old. Routine annual screening examination. PERTINENT HISTORY: Non-contributory. TECHNIQUE: Digital bilateral breast stanton (3D mammographic acquisition) in the CC and MLO projections. 2-D mediolateral oblique (MLO) and craniocaudad (CC) views of both breasts were obtained. CAD: Full Field Digital Mammography with Computer Added Detection was performed. COMPARISON: Comparison is made with prior study of June 17, 2022 and June 29, 2022. FINDINGS: Breast Composition: There are scattered areas of fibroglandular density. There are no dominant masses or suspicious calcifications. Tissue clip marker is now seen in the deep upper lateral aspect of the right breast. The previously seen nodular density at that site has almost completely resolved. No other significant abnormalities are identified. There has been no significant change since the prior study. BI/SCRN MAMM (CAD)W/STANTON BILAT IMPRESSION: Stable bilateral screening mammogram. Yearly follow-up mammogram recommended. (A) ASSESSMENT CATEGORY: BIRADS Category 2: Benign. A letter regarding these results will be sent to the patient by the facility within 30 days. Approximately 10% of breast cancers are not detected by mammography. A normal mammogram should not delay biopsy of a clinically suspicious abnormality. [id number] Electronically Signed: Ari Lemus MD at 13:39 EDT ,
== END | disposition home or self-care (01) ==
LOC: OPBI 10:45
PROVIDERS: PCP Internal Medicine; Referring Provider Internal Medicine; Visit Provider Internal Medicine
DX: Z12.31 Encounter for screening mammogram for malignant neoplasm of breast (principal)
CPT/HCPCS: 77063; 77067

== ENCOUNTER 2023-08-06 13:45 | Emergency (ER) | payer MEDICARE, SELFPAY ==
[2023-08-06 13:47] VITALS: BP 102/77; PULSE 74; RESP 12; TEMP 35.5; O2SAT 99; BMI 22.9
--- NOTE | 2023-08-06 14:22 | EX.ED.GENINJ ---
HPI History of Present Illness Chief Complaint: Laceration Narrative Narrative: Female presenting with laceration under her left eye. Patient states that she was in the kitchen and after opening a cabinet and hit her in the face. She was able to control the bleeding. Sustained a heart injury having LOC, dizziness, nausea. Patient states that when she pulls on her face there is some gaping of the wound but with no traction wound is well approximated. 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 Hemorrhoids History of back problems History of echocardiogram History of edema History of rheumatic fever History of steroid therapy History of stress test HTN (hypertension) Hypokalemia Hypopituitarism Hypothyroid Low iron Neuropathy Non-smoker Post-menopausal Reflux gastritis Thyroid disease Wears glasses Home Medications biotin 2,500 mcg capsule 5,000 mcg PO DAILY 05/28/17 [History Last Taken Unknown] hydrocortisone 10 mg tablet 5 mg PO 4X/DAY 05/28/17 [History Last Taken 11/11/22] liothyronine 5 mcg tablet (Cytomel) 10 mcg PO BID thyroid 05/28/17 [History Last Taken 11/11/22] metoprolol succinate 25 mg tablet,extended release 24 hr 25 mg PO DAILY 05/28/17 [History Last Taken 11/11/22] naproxen 500 mg tablet 500 mg PO BID PRN PRN Pain 05/28/17 [History Last Taken Unknown] quetiapine 100 mg tablet (Seroquel) 300 mg PO QHS 05/28/17 [History Last Taken Unknown] cyclobenzaprine 10 mg tablet 10 mg PO .prn 12/31/20 [History Last Taken Unknown] estradiol-norethindrone acet 1 mg-0.5 mg tablet (Mimvey) 1 tab PO QODAY 12/31/20 [History Last Taken Unknown] gabapentin 300 mg capsule 1,200 mg PO QHS 12/31/20 [History Last Taken Unknown] ibuprofen 800 mg tablet 800 mg PO .prn 12/31/20 [History Last Taken Unknown] lamotrigine 200 mg tablet (Lamictal) 200 mg PO DAILY 12/31/20 [History Last Taken Unknown] lorazepam 0.5 mg tablet (Ativan) 0.5 mg PO Q6H PRN Anxiety 12/31/20 [History Last Taken Unknown] losartan 100 mg tablet 100 mg PO DAILY 12/31/20 [History Last Taken 11/11/22] meloxicam 15 mg tablet (Mobic) 15 mg PO .prn 12/31/20 [History Last Taken Unknown] ergocalciferol (vitamin D2) 1,250 mcg (50,000 unit) capsule 1,250 mcg PO QMONTH 01/17/21 [History Last Taken Unknown] ferrous sulfate 105 mg-C 500 mg-folic acid 800 mcg tablet,extend.rel 1 ea PO DAILY 01/17/21 [History Last Taken Unknown] sennosides 8.6 mg-docusate sodium 50 mg tablet 2 ea PO QHS 01/17/21 [History Last Taken Unknown] hydrochlorothiazide 25 mg tablet 25 mg PO QODAY PRN SWELLING 12/26/21 [History Last Taken Unknown] hydrocortisone sod succinate 100 mg solution for injection (Solu-Cortef) 100 mg IM ONCE PRN Diarrhea 12/26/21 [History Last Taken Unknown] potassium chloride 20 mEq oral packet 20 meq PO DAILY PRN supplement 12/26/21 [History Last Taken Unknown] sucralfate 1 gram tablet (Carafate) 1 g PO QACHS PRN Stomach Upset 12/26/21 [History Last Taken Unknown] levothyroxine 50 mcg tablet 100 mcg PO DAILY 05/05/22 [History Last Taken 11/11/22] minerals 1 tab PO DAILY 05/05/22 [History Last Taken Unknown] calcium carb,cit ER 600 mg-vit D3 12.5 mcg (500 unit) tablet,ext.rel (Citracal-D3 Slow Release) 1 tab PO DAILY 06/18/22 [History Last Taken Unknown] vitamin B complex 2 cap PO DAILY 06/18/22 [History Last Taken Unknown] hydrocortisone 5 mg tablet (Cortef) 5 mg PO 4X/DAY ADRENAL INSUFFICIENCY 11/04/22 [History Last Taken Unknown] mirabegron 50 mg tablet,extended release 24 hr (Myrbetriq) 50 mg PO DAILY 11/04/22 [History Last Taken Unknown] prasterone (dhea) 50 mg tablet (DHEA) 50 mg PO MOFR 11/04/22 [History Last Taken Unknown] ciprofloxacin HCl 500 mg tablet (Cipro) 500 mg PO BID #6 tabs 11/11/22 [Rx Last Taken Unknown] Allergy/AdvReac Type Severity Reaction Status Date / Time Penicillins Allergy Rash Verified 08/06/23 13:46 Family History Mother Arthritis Hypertension Alzheimer disease Father Cancer AML Sister Breast cancer Hypertension Daughter Breast cancer Grandfather Stomach cancer Surgical History History of appendectomy History of colonoscopy History of right breast biopsy (~06/2022) History of umbilical hernia repair Hx of esophagogastroduodenoscopy Hx of hand surgery S/P bilateral foot surgery s/p bladder sling S/P hemorrhoidectomy S/P joint replacement Status post selective transsphenoidal pituitary adenomectomy Social History Smoking Status: Never smoker alcohol intake: current EXAM Physical Exam Const Vital Signs: 08/06/23 13:47 Temperature 95.9 F L Temperature Source Temporal Pulse Rate 74 Respiratory Rate 12 Blood Pressure 102/77 Blood Pressure Mean 85 Pulse Ox 99 Oxygen Delivery Method Room Air Positive well nourished General Appearance ED: NAD HEENT atraumatic Eyes PERRL and EOMs intact bilaterally Resp normal respiratory effort Neuro oriented x3 and CN's II-XII intact bilaterally Sensorium / Orientation: alert Psych mental status grossly normal and thought process normal Skin Skin Narrative: 2 cm partial-thickness laceration with good approximation. No active bleeding. MDM MDM MDM Narrative Medical decision making narrative: With well approximated 2 cm laceration. The woundwas cleaned thoroughly. Since that is already well approximated I do not believe she has sutures. This is amenable to skin glue. Patient tolerated procedure well. Good approximation of wound margins. Glue was left dry.. Patient was given wound care instructions. She was also given follow-up. 1. 2 cm superficial laceration Discharge Plan Triage Chief Complaint: Laceration ED Provider: Justin Raygoza Dx/Rx/DC Orders Instructions: ED Laceration, Face: Skin Glue Prescriptions: No Action losartan 100 mg tablet 100 mg PO DAILY gabapentin 300 mg capsule 1,200 mg PO QHS lamotrigine [Lamictal] 200 mg tablet 200 mg PO DAILY estradiol-norethindrone acet [Mimvey] 1-0.5 mg tablet 1 tab PO QODAY ibuprofen 800 mg tablet 800 mg PO .prn meloxicam [Mobic] 15 mg tablet 15 mg PO .prn cyclobenzaprine 10 mg tablet 10 mg PO .prn lorazepam [Ativan] 0.5 mg tablet 0.5 mg PO Q6H PRN (Reason: Anxiety) hydrocortisone sod succinate 100 mg solution for injection 100 mg recon soln 100 mg IM ONCE PRN (Reason: Diarrhea) hydrochlorothiazide 25 mg tablet 25 mg PO QODAY PRN (Reason: SWELLING) potassium chloride 20 mEq packet 20 meq PO DAILY PRN (Reason: supplement) sucralfate [Carafate] 1 gram tablet 1 g PO QACHS PRN (Reason: Stomach Upset) minerals Tablet 1 tab PO DAILY liothyronine [Cytomel] 5 MCG tablet 10 mcg PO BID quetiapine [Seroquel] 100 MG tablet 300 mg PO QHS metoprolol succinate 25 MG tablet extended release 24 hr 25 mg PO DAILY hydrocortisone 10 MG tablet 5 mg PO 4X/DAY naproxen 500 MG tablet 500 mg PO BID PRN PRN (Reason: Pain) biotin 2,500 MCG capsule 5,000 mcg PO DAILY levothyroxine 50 mcg tablet 100 mcg PO DAILY Patient Comments: on CASILLAS 150mcg sennosides-docusate sodium 1 EACH tablet 2 ea PO QHS ferrous [id number] acid 1 EACH tablet extended release 1 ea PO DAILY ergocalciferol (vitamin D2) 1,250 MCG capsule 1,250 mcg PO QMONTH Patient Comments: on the 12th of each month calcium carb and citrate-vitD3 [Citracal-D3 Slow Release] 600 mg-12.5 mcg (500 unit) Tablet Extended Release 1 tab PO DAILY vitamin B complex Capsule 2 cap PO DAILY hydrocortisone [Cortef] 5 mg tablet 5 mg PO 4X/DAY Myrbetriq 50 mg tablet extended release 24 hr 50 mg PO DAILY DHEA 50 mg Tablet 50 mg PO MOFR ciprofloxacin HCl [Cipro] 500 mg tablet 500 mg PO BID Qty: 6 0RF Primary Care Provider: Luisa Coffey Referrals: Liusa Coffey MD [Primary Care Provider] - Disposition Disposition: Home, Self Care
== END 2023-08-06 14:36 | disposition home or self-care (01) ==
PROVIDERS: Emergency Provider Student in an Organized Health Care Education/Training Program; PCP Internal Medicine; Visit Provider Student in an Organized Health Care Education/Training Program
DX: S05.32XA Ocular laceration without prolapse or loss of intraocular tissue, left eye, initial encounter (principal); X58.XXXA Exposure to other specified factors, initial encounter
CPT/HCPCS: 99282

== ENCOUNTER → 2023-11-03 | Outpatient (CLI) | payer MEDICARE, SELFPAY ==
--- NOTE | 2023-11-03 14:44 | NEURO ---
NCS and/or EMG Patient Report Ordering Doctor: Luisa Coffey DATE OF SERVICE: 11/03/23 Gayathri presents for electrodiagnostic testing of the upper limbs. She reports numbness and tingling in both hands, worse on the right side. Electrodiagnostic findings: Right median motor nerve demonstrates prolonged latency with normal amplitude and borderline reduced conduction velocity. Left median motor nerve demonstrates prolonged latency with reduced amplitude and reduced conduction velocity. Ulnar motor response is within normal limits bilaterally. Normal ulnar F?with bilaterally. Normal left median F?wave. Prolonged median sensory latency at the wrist bilaterally. Prolonged median palmar latency bilaterally. Needle EMG testing was performed in the upper limbs. 1+ fibrillations noted in the left triceps, left flexor carpi ulnaris and left cervical paraspinals. Motor unit action potentials are of normal amplitude and duration. Electrodiagnostic impression: This is an abnormal study in the upper limbs 1. Electrodiagnostic findings suggestive of bilateral median mononeuropathy. This is consistent with a mild right carpal tunnel syndrome and a moderate left carpal tunnel syndrome. 2. Electrodiagnostic findings suggestive of acute left C7 radiculopathy. Consider clinical correlation with cervical spine imaging to evaluate for underlying stenosis and/or disc herniation. Multi Select Codes Neurology Neurology Interp Codes: 80805-30 Musc test done w/n test comp (interp) (2) and 99760-77 Nrv cndj test 13/> studies (interp)
== END | disposition home or self-care (01) ==
LOC: PSN 07:07
PROVIDERS: PCP Internal Medicine; Referring Provider Internal Medicine; Visit Provider Internal Medicine
DX: R29.898 Other symptoms and signs involving the musculoskeletal system (principal)
CPT/HCPCS: 95886; 95913

== ENCOUNTER 2023-11-09 10:00 | Outpatient (RCR) | payer MEDICARE, SELFPAY ==
--- NOTE | 2023-10-06 11:01 | HP.OTEVAL ---
Patient's Visit Information Visit Information Visit Information: DARWIN BOLAÑOS is a 58 year old F, referred to Occupational Therapy by MATHEW NASCIMENTO, with a diagnosis of bilateral joint OA of hands. Date of Evaluation: 10/06/23 Occupational Therapist: Violeta Patino, OTR/[place], CHT Subjective Subjective: This 58 year old female was seen for OT eval with dx of OA joints of hands- pt states she has had right D2, D3, D4 MCP j replacement and left D2-3-4. pt states after her joint replacements she did have strength to brain picker items and cut food but now things are changing. p pt denies wearing supportive braces. pt states she has not had recent hand x-ray ( right hand) pt states she is loosing function - zip, button, brain picker items without dropping things. pt is right handed pt does workout and does pool exercise pt would like to not have to rely on her for so much and wants her strength to return to its PLOF . 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 with FMS by d/c Goal:: pt will demo the ability to manipulate zippers/fasteners IND by dc Goal:: pt will demo a improved monofilament testing by 2 points indication of increase in sensation by d./c Goal:: pt will demo a understanding of joint protection bree. and use of ad. eq. to increase pts functional use of bilateral hand by d.c Goal:: pt will report IND with cutting food, brushing teeth etc. by d.c Rehabilitation General Assessment: pt demo with bilateral OA joint deformities muscle atrophy of dorsal interosseous muscle of bilateral hands more in right than left. pt currently demo bilateral hand weakness, decrease sensation limiting pts ind. with ADls and fine motor tasks- pt would benefit from skilled OT services 2-3x week for 6 weeks to ed. pt on dx, ad. eq. joint protection, nerve glides and strengthen to increase pts ind. with ADls and IADL by d/c. pt demo understanding and agree to POC. Rehabilitation Potential: Good Anticipated Interventions Anticipated Interventions: A/AAROM/PROM, Strengthening, Sensory Retraining, Modalities, Orthoses, Joint Protection/Energy Conservation, Ergonomic Education, Fine Motor Coord/[place], Education re assistive Equipment, Education re Diagnosis, Caregiver Training and Home Program Visit Plan Frequency: 1-2x /Week Duration: 6 Weeks TEXT: Thank you for the opportunity to evaluate your patient. For Medicare and Medicare HMO plans, please review the plan of care and approve it. It will need to be FAXED BACK to us at [phone] for Medicare purposes. Please let me know if there are questions or concerns regarding this plan of care. Physician Signature: Date:
--- NOTE | 2024-03-07 15:13 | HP.OT.NRP ---
Patient Information Patient Information: DARWIN BOLAÑOS was seen in my office for initial evaluation on 10/06/23. The following Plan of Care was established for this patient: POC Established Initial Frequency: 1-2x /Week Initial Duration: 6 Weeks Anticipated Interventions Anticipated Interventions: A/AAROM/PROM, Strengthening, Sensory Retraining, Modalities, Orthoses, Joint Protection/Energy Conservation, Ergonomic Education, Fine Motor Coord/[place], Education re assistive Equipment, Education re Diagnosis, Caregiver Training and Home Program Last Seen Last Seen: This patient was last seen in our office 10/26/23. Pertinent comments regarding their Occupational therapy will appear below: pt was seen for 5 OT sessions. At this time due to time lapse in services pt is d/c. At this point I will be discontinuing this patient from occupational therapy. I would be happy to see this patient again in the future if found appropriate by the physician. Thank you! Violeta Patino, OTR/L, CHT
== END 2023-11-09 19:00 | disposition home or self-care (01) ==
LOC: OT 10:00
PROVIDERS: PCP Internal Medicine
DX: M19.041 Primary osteoarthritis, right hand (principal); M19.042 Primary osteoarthritis, left hand
CPT/HCPCS: 97110; 97166; 97530

== ENCOUNTER → 2023-11-10 | Outpatient (CLI) | payer MEDICARE, SELFPAY ==
--- NOTE | 2023-11-10 14:20 | CT_ITS ---
INDICATION: STAT...pt had head injury and now has short term memory loss -- EXAMINATION: CT BRAIN - CT Head or Brain W/O Contrast Injection TECHNIQUE: Multiple axial images were obtained of the head without intravenous contrast. A radiation dose optimization technique was used for this scan. IV Contrast dosage and agent: None. RADIATION DOSAGE (If Supplied By Facility): CTDIvol = ( 47.06 ) mGy, DLP = ( 925.62 ) mGycm COMPARISON: No relevant prior comparison study available FINDINGS: BRAIN PARENCHYMA: No intra- or extra-axial hemorrhage. No evidence of acute infarct. No intracranial mass or mass effect. There is preservation of the ely/white matter interface. Posterior fossa structures are unremarkable. CSF SPACES: Appropriate for age. No hydrocephalus. Basal cisterns are patent. CALVARIUM, SKULL BASE, PARANASAL SINUSES AND MASTOID AIR CELLS: Mucosal thickening of the sphenoid sinuses. No discrete lytic or blastic abnormalities. ORBITS: Both globes, extraocular muscles, optic nerves and retrobulbar fat appear grossly unremarkable. CT/Brain/Head without Contrast IMPRESSION: 1. No acute intracranial process. 2. Sinus disease. Electronically Signed: Alessandro Vanegas MD at 15:03 EST ,
== END | disposition home or self-care (01) ==
LOC: CT 14:18
PROVIDERS: PCP Internal Medicine; Visit Provider Internal Medicine
DX: S09.90XA Unspecified injury of head, initial encounter (principal)
CPT/HCPCS: 70450

== ENCOUNTER 2024-08-17 15:20 | Outpatient (CLI) | payer MEDICARE, SELFPAY ==
--- NOTE | 2024-08-17 15:20 | BI_ITS ---
MAMMOGRAPHY - BILATERAL SCREENING REASON FOR EXAM: Female, 58 years old. Routine annual screening examination. PERTINENT HISTORY: Non-contributory. TECHNIQUE: Digital bilateral breast stanton (3D mammographic acquisition) in the CC and MLO projections. 2-D mediolateral oblique (MLO) and craniocaudad (CC) views of both breasts were obtained. CAD: Full Field Digital Mammography with Computer Added Detection was performed. COMPARISON: Comparison is made with prior examination is August 05, 2023 and June 29, 2022. FINDINGS: Breast Composition: There are scattered areas of fibroglandular density. There are no dominant masses or suspicious calcifications. A tissue clip marker is once again seen in the deep upper lateral aspect of the right breast. Stable small bilateral axillary lymph nodes. No other significant abnormalities are identified. There has been no significant change since the prior study. BI/SCRN MAMM (CAD)W/ST[place]ON BILAT IMPRESSION: Stable bilateral screening mammogram. Yearly follow-up mammogram recommended. (A) ASSESSMENT CATEGORY: BIRADS Category 2: Benign. A letter regarding these results will be sent to the patient by the facility within 30 days. Approximately 10% of breast cancers are not detected by mammography. A normal mammogram should not delay biopsy of a clinically suspicious abnormality. [id number] Electronically Signed: Ari Lemus MD at 8:29 EDT ,
--- NOTE | 2024-08-17 15:20 | BD_ITS ---
STUDY: DUAL ENERGY X-RAY ABSORPTIOMETRY / DXA REASON FOR EXAM: Female, 58 years old. 733.90OsteopeniaBONE DENSITY REASON FOR EXAM TECHNIQUE: Bone Mineral Density (BMD) measurements of lumbar spine and bilateral hips were obtained. COMPARISON: Comparison is made with prior study dated June 25, 2022. FINDINGS: Lumbar Spine (L1-L4): g/cm2 (1.053) / T-score (0.3) / Z-score (1.7) Findings are suggestive of normal bone density with a low fracture risk. Left Femur Total: g/cm2 (1.102) / T-score (1.3) / Z-score (2.3) Left Femoral Neck: g/cm2 (0.851) / T-score (0.0) / Z-score (1.3) Right Femur Total: g/cm2 (1.123) / T-score (1.5) / Z-score (2.4) Right Femoral Neck: g/cm2 (0.851) / T-score (0.0) / Z-score (1.3) The T-Scores on the most recent prior examination were: Lumbar Spine (L1-L4): There has been worsening of bone density since the previous examination. Left Femur Total: which represents an improvement of 0.1. Right Femur Total: which represents a worsening of 1.9%. BD/Dexa Bone Density Study IMPRESSION: The patient is considered as outlined below according to World Francois Organization (WHO) criteria with a low fracture risk. There has been improvement of bone density since the previous examination. Reference Information: The T-score is the number of standard deviations above or below the standard which is normal for young adults at their peak bone mineral density. The World Health Organization (WHO) interprets the T-scores as follows: Above -1 Normal bone density Between -1 and -2.5 Osteopenia Equal to / or below -2.5 Osteoporosis As a practical clinical guideline, osteopenia may be graded as follows: Mild -1 through -1.5 Moderate -1.6 through -2.0 Severe -2.1 through -2.4 The Z-score is the number of standard deviations above or below age-matched controls. A Z-score of less than -1.5 would be considered abnormal. References: 1. NIH Osteoporosis and Related Bone Diseases www osteo.org 2. International Society for Clinical Densitometry www iscd.org 3. National Osteoporosis Foundation www nof.org Electronically Signed: Ari Lemus MD at 12:39 EDT ,
== END 2024-08-17 23:59 | disposition home or self-care (01) ==
LOC: OPBD 15:20
PROVIDERS: PCP Internal Medicine; Referring Provider Internal Medicine; Visit Provider Internal Medicine
DX: Z12.31 Encounter for screening mammogram for malignant neoplasm of breast (principal); M85.80 Other specified disorders of bone density and structure, unspecified site; Z78.0 Asymptomatic menopausal state
CPT/HCPCS: 77063; 77067; 77080

== ENCOUNTER 2024-10-16 09:30 | Outpatient (RCR) | payer MEDICARE, SELFPAY ==
--- NOTE | 2024-09-14 12:51 | HP.PTEVAL_ITS ---
Patient's Visit Information Visit Information Visit Information: DARWIN BOLAÑOS is a 58 year old F referred to Physical Therapy by Dr. Luisa Coffey MD with a diagnosis of LB strain. Date of Evaluation: 09/14/24 Physical Therapist: Jonathan Navarrete, JORDIT, OCS, CSCS Visit Plan Frequency: 3x /Week Duration: 4-6 Weeks Plan: 3x/week for 4-6 weeks(2 to start) start with US and DTR, STM to L thoracic parspinals start treating with HEP instruct for mat based core, hip stabs, general LE and UE ex using wrist weights due to hand defomrities and pain and working toward 5+ # to tolerance after I with all of these can consdier working to gym based program as tolerated and desired. Subjective Subjective: H/o LBP chronic. Having injections and ablations from pain management most recently in [place] and poor f/u. That was in the spring. Will go back to [facility] if goes back , wants to try and manage it otherwise. Has pinched nerve in neck impeding R hand use and seen surgeon and cannot ehlp it at all except for a cage which she does not want. 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 Has been exercising in pool at home but now it is closed. Wants to learn gym program to build general muscle to support skeleton and CV. Sweeper adn picking up sticks make her more painful in L LB. using L hand is slightly better. Sleep is Ok with motrin or tylenol, and flexeril. Basic ADLs, button adn zip and snap is done by due to hands. Has cushings disease. Otherwise can dress and bathroom/shower I. 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 Afternoon is for doctor appointments or taking care of grandchildren. No back exercises except fis and squats holding weights. Pain LBP: Pain Intensity (Out of 10): 0 Pain Intensity Range: 0 and 4 Comment: all L side, better lying down. Objective Objective: Walks into PT I, has some IR at femurs noticeable but I gait, Trasnfer bed and chair I and quickly. Steps reciprocally without rail.Ir at femurs with descending steps and hip flexion testing. cervical AROM spine WFL and without pain, Lumbar AROM WNL and some discomfort in extension. Tender to palpation L thoraci and lumbar paraspinals and feels tight vs R side but moving rather well. UE AROM WFL except R hand which is deformed and only partially funcitonal. L hand moves well. UE strength flexion, abd 4+/5 without pain, elbow flex ext 4+, ir/er 4/5, no pain. LE AROM WFL mobility is not an issue in the joints, flexibility is hyper. reflexes 2/3 patella and achilles and bi and tri sensation UE and LE WNL to gross light touch. - SLR, - slump Obvious instability in hips and core with seated hip adn shoulder testing. trunk strength 3 in ext and flexion, hip abd and rotation testing 3+, extension 3/5 B Balance/Special Test Scores Functional Gait Assessment Score: 30 % Disability: 0 Oswestry Low Back Score: 20 Goals Goal 1:: Tenderness and pain in L paraspinals 505 better adn 2/10 at worst. Goal Time Frame: 4-6 Weeks Goal 2:: I appropriate HEP of hip and core stabs home and gym, UE postural strength with arm weights(no tolerate db) and gym program for core , LE and posturel Goal Time Frame: 4-6 Weeks Goal 3:: Tolerate 15 min yard work without having to sit down and take a break. Goal Time Frame: 4-6 Weeks Goal 4:: oswestry 5 or better Goal Time Frame: 4-6 Weeks Rehabilitation Potential Physical Therapy Diagnosis: Tenderness in parapsinals and instability Rehabilitation Potential: Fair Anticipated Interventions Patient/Client Instruction: Educate patient on: Condition and Plan of Care For the Purpose of:: To decrease pain, To increase ROM, To improve nutrient delivery to tissue and To improve gait and locomotor functions Therapeutic Exercise to Include: Strength training, Postural training, Passive ROM and Active ROM For the Purpose of:: To decrease swelling/inflammation, To improve nutrient delivery to tissue, To increase oxygenation perfusion, To increase tolerance to activity/condition/position and To improve gait and locomotor functions Manual Therapy Techniques to Include: Manipulation and Soft tissue mobilization For the Purpose of:: To decrease pain, To increase ROM, To improve nutrient delivery to tissue and To improve muscle performance and motor function Cryotherapy (ice pack, ice massage): Yes Ultrasound (thermal/non thermal): Yes For the Purpose of:: To decrease pain, To increase ROM, To improve nutrient delivery to tissue and To improve muscle performance and motor function Text: Thank you for the opportunity to evaluate your patient. For Medicare and Medicare HMO plans, please review the plan of care and approve it. It will need to be FAXED BACK to us at [phone] for Medicare purposes. For Medicare only, by signing this I certify the plan of care. Please let me know if there are questions or concerns regarding this plan of care. Physician Signature: Date:
== END 2024-10-16 19:00 | disposition home or self-care (01) ==
LOC: PT 09:30
PROVIDERS: PCP Internal Medicine; Referring Provider Internal Medicine; Visit Provider Internal Medicine
DX: M54.30 Sciatica, unspecified side (principal); M54.50 Low back pain, unspecified
CPT/HCPCS: 97140; 97161

== ENCOUNTER → 2024-12-18 | Outpatient (CLI) | payer MEDICARE, SELFPAY ==
--- NOTE | 2024-12-18 08:54 | RDU_ITS ---
Reason For Study: Kidney Disease Right Renal Artery Left Renal Artery Right renal artery ostium 72.3/21.2 Left renal artery ostium 56.7/17.1 RSV/EDV. PSV/EDV. Right renal artery proximal Left renal artery proximal PSV/EDV 59.7/26.5 PSV/EDV. 72.1/22.6 . Right renal artery mid 141.8/58.4 Left renal artery mid 41.8/17.5 PSV/EDV. PSV/EDV . Right renal artery distal Left renal artery distal 58.9/20.4 113.3/47.4 PSV/EDV. PSV/EDV. Right RAR 2.0. Left RAR 0.8. Right Renal Parenchyma Left Renal Parenchyma Upper Pole Medula 34.4/15.7 Left upper pole medulla 29.2/10.2 PSV/EDV. PSV/EDV . Right upper pole medulla EDR 0.5 . Left upper pole medulla EDR 0.3 . Right upper pole medulla R.I. Left upper pole medulla R.I. 0.65 . 0.54 . UP Cortex 20.0/8.4 PSV/EDV. Upper [place] Cortx 25.6/11.3 PSV/EDV. Left upper pole cortex EDR 0.4 . Right upper pole cortex EDR 0.4 . Left upper pole cortex R.I. 0.58 . Right upper pole cortex R.I. 0.56 . Left lower Pole medulla 25.6/10.2 Right lower Pole medulla 32.7/11.3 PSV/EDV . PSV/EDV . Left lower pole medulla EDR 0.4 . Right lower pole medulla EDR 0.3 . Left lower pole medulla R.I. 0.60 . Right lower pole medulla R.I. Lower Pole Cortx 22.5/10.2 PSV/EDV. 0.65 . Left lower pole cortex EDR 0.5 . Lower Pole Cortex 15.9/6.6 PSV/EDV. Left lower pole cortex R.I. 0.55 . Right lower pole cortex EDR 0.4 . Left Renal Hilar Right lower pole cortex R.I. 0.58 . LT Hilar avg 83.0/32.7 PSV/EDV . Right Renal Hilar Left hilar acceleration time 0.08 Right Hilar avg 114.0/46.9 PSV/EDV. m/sec. Right hilar acceleration time 0.06 Left Renal Dimensions m/sec. Left kidney size 10.40 cm . Right Renal Dimensions Left cortical dimension 1.24 cm . Right kidney size 9.43 cm . Right cortical dimension 1.51 cm . Aorta Proximal abdominal aorta 1.68x1.92 cm . Proximal abdominal aorta peak systolic velocity is 65.8 cm/sec . Distal abdominal aorta 1.99x1.90 cm . Distal abdominal aorta peak systolic velocity is 70.5 cm/sec . VL/Renal Artery Duplex Ultrasound Interpretation Summary Right renal artery patent with normal velocities and no evidence of stenosis. Left renal artery patent with normal velocities and no evidence of stenosis. Right renal vein patent. Left renal vein patent. Right kidney normal in size. Left kidney normal in size. Ordering Physician: Luisa Coffey Referring Physician: Luisa Coffey Performed By: Noah Garcia RVT and Student
== END | disposition home or self-care (01) ==
LOC: CVS 08:54
PROVIDERS: PCP Internal Medicine; Referring Provider Internal Medicine; Visit Provider Internal Medicine
DX: N18.31 Chronic kidney disease, stage 3a (principal)
CPT/HCPCS: 93975

== ENCOUNTER 2025-01-25 11:30 | Outpatient (RCR) | payer MEDICARE, SELFPAY ==
--- NOTE | 2024-12-18 13:56 | HP.PTEVAL_ITS ---
Patient's Visit Information Visit Information Visit Information: DARWIN BOLAÑOS is a 59 year old F referred to Physical Therapy by Dr. Luisa Coffey MD with a diagnosis of cervical DDD and LBP. Date of Evaluation: 12/18/24 Physical Therapist: Jonathan Navarrete, DPT, OCS, CSCS Visit Plan Frequency: 2x /Week Duration: 4-6 Weeks Plan: Current HEP: cat camel, prone and supine strength, bugs, plank, SLR, UT stretch and neck ROM and will continue these. 3x/week 4-6 for: 1. US nonthermal R UT and STM NO heat to b/w scap 2. prone HEP upper half strength and neck strength sitting to HEP 3. General ex in gym (may need to use straps for hand dysfunction instead of bars) but progress to LE adn full bosdy including core strength to membership. Overall this plan is a continuation of the last inerruted plan which pt could not finish due to other medical problems, similar presentation today. Subjective Subjective: First visit after last eval got a tear in her eye. 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 back and neck still hurt but had to stop treamtent due to eye problems and continued to do HEP and still doing them. They help her psychilogically. neck pain 3-8 adn LBP 3-7, worse with sweeping and needs to lie down. Sleeping is not a problem with seraquil which is for bipolar. Lying on shoulders makes arms hurt. Doctor wants resumed therapy after got halted with eye problems, no major changes. Feels good after HEP and pool but doesn't wish to get in pool in winter, it iis a hassle, will join gym and continue HEP. Pain neck pain.: Pain Intensity (Out of 10): 3 Pain Intensity Range: 3 and 8 Comment: R side > L LBP: Pain Intensity (Out of 10): 2 Pain Intensity Range: 2 and 7 Comment: sweeping and bending are worse. Objective Objective: Walks into PT I, has some IR at femurs noticeable but I gait, Trasnfer bed and chair I and quickly. Steps reciprocally without rail.Ir at femurs with descending steps and hip flexion testing. cervical AROM spine WFL and without pain, Lumbar AROM WNL and some discomfort in extension. Tenderness is present in R UT adn B medial scap mm including rhombodis and lower traps. Tender to palpation L thoracic and lumbar paraspinals and feels tight vs R side but moving rather well. UE AROM WFL except R hand which is deformed and only partially funcitonal. L hand moves well. UE strength flexion, abd 4+/5 without pain, elbow flex ext 4+, ir/er 4/5, no pain. LE AROM WFL mobility is not an issue in the joints, flexibility is hyper. reflexes 2/3 patella and achilles and bi and tri sensation UE and LE WNL to gross light touch. - SLR, - slump , - c/s compression. Actually moves well but has widespread pain in spinal neck and LB. Obvious instability in hips and core with seated hip adn shoulder testing. trunk strength 3 in ext and flexion, hip abd and rotation testing 3+, extension 3/5 B Balance/Special Test Scores Oswestry Low Back Score: 20 Goals Goal 1:: Tenderness and pain in L paraspinals 50% better and 2/10 at worst. Goal Time Frame: 4-6 Weeks Goal 2:: Oswestry score 5 or better Goal Time Frame: 4-6 Weeks Goal 3:: 15 min of work without a sit down break. Goal Time Frame: 4-6 Weeks Goal 4:: I HEP for upper back and gym for general ex. Goal Time Frame: 4-6 Weeks Rehabilitation Potential Physical Therapy Diagnosis: Mutlifactorial pain which limits comfortable funciton, also weakness and hypermobile. Rehabilitation Potential: Questionable Anticipated Interventions Patient/Client Instruction: Educate patient on: Condition and Plan of Care For the Purpose of:: To decrease pain, To increase ROM, To improve nutrient delivery to tissue and To increase tolerance to activity/condition/position Therapeutic Exercise to Include: Strength training, Postural training, Flexibilty training and Active ROM For the Purpose of:: To decrease pain and To increase ROM Manual Therapy Techniques to Include: Passive ROM and Soft tissue mobilization For the Purpose of:: To decrease pain, To increase ROM and To improve nutrient delivery to tissue Ultrasound (thermal/non thermal): Yes For the Purpose of:: To decrease pain, To improve nutrient delivery to tissue and To improve muscle performance and motor function Text: Thank you for the opportunity to evaluate your patient. For Medicare and Medicare HMO plans, please review the plan of care and approve it. It will need to be FAXED BACK to us at [phone] for Medicare purposes. For Medicare only, by signing this I certify the plan of care. Please let me know if there are questions or concerns regarding this plan of care. Physician Signature: Date:
--- NOTE | 2025-01-25 12:19 | HP.PTDCSUM ---
Discharge Summary D/C summary: It has been my pleasure to treat DARWIN BOLAÑOS referred by Dr. Luisa Coffey MD, with the diagnosis of cervical DDD and LBP for a total of 16 visit(s). Discharge Date: 01/25/25 Please see the following information for a summary of their discharge status. Subjective Subjective: Maria D is doing Ok. Neck has loosened up the last couple times. They released and it is lasting. HEP: [id number] as body feels tired alot of the time recently. Dr. Coffey working on her neurontin. Pain this week 3/10 in LB and 1/10 in upper back. Dry needling did not help. Has appointment with pain management 3/4. Pain neck pain.: Pain Intensity (Out of 10): 3 LBP: Pain Intensity (Out of 10): Unrated Overall Improvement % Improvement: 0 Objective Objective/Function: Good UE adn neck ROM today with just stiffness neck at end ranges. no pain today. Overall no better however adn still complaining of neck pain at times. She will see pain managemnt next week and have medical marijuana consult after that. strength in UE 4- without myotomal problems. Feels like she can continue HEP but does not want to learn gym at this time. Going to [facility] in a couple weeks. Goals Goal 1:: Tenderness and pain in L paraspinals 50% better and 2/10 at worst. Goal Progress: Not Progressing Goal 2:: Oswestry score 5 or better Goal Progress: Not Progressing Goal 3:: 15 min of work without a sit down break. Goal Progress: Not Progressing Goal 4:: I HEP for upper back and gym for general ex. Goal Progress: Not Progressing Plan Plan: d/c due to lack of improvement consistently D/C Information Discharge Comments: No improvement. Will see pain managemnt next week and medical marijuana doctor the following before going to [facility]. d/c sentence: If there are questions or concerns regarding this patient's physical therapy, please feel free to call me at [phone]. Thank you for the referral of this patient. Sincerely, Jonathan Navarrete, DPT, OCS, CSCS Balance/Gait/Functional tests Balance/Special Test Scores Oswestry Low Back Score: 19 Improvement % Improvement: 0
== END 2025-01-25 12:22 | disposition home or self-care (01) ==
LOC: PT 11:30
PROVIDERS: PCP Internal Medicine; Referring Provider Internal Medicine; Visit Provider Internal Medicine
DX: M54.50 Low back pain, unspecified (principal); M50.30 Other cervical disc degeneration, unspecified cervical region
CPT/HCPCS: 97035; 97110; 97140; 97162

== ENCOUNTER → 2025-08-28 | Outpatient (CLI) | payer MEDICARE, SELFPAY ==
--- OUTSIDE RECORDS SUMMARY | 2025-01-11 10:58 | XMS RPT_ITS ---
Author Name Auto Generated Organization [facility] Care Team Providers Care Right Of Way Appraiser Name Role Phone ISIDORO POND Attending Unavailable PROBLEMS No Problem Records Found PROCEDURES No Procedure Records Found RESULTS ALLERGIES DATE TYPE / CODE NAME / CODE REACTION SEVERITY SOURCE 01/11/2025 DRUG INGREDI/[id number](S NOMED CT) PENICILLIN Rash [facility] ENCOUNTERS ADMIT/DISCHARGE ACCOUNT NUMBER ADMITTING ENCOUNTER CLASS LOCATION SOURCE 01/11/2025/ [id number] Ambulatory Building:[facility] [id number] [facility] Ambulatory PAYERS ENCOUNTER GUARANTOR PAYER SUBSCRIBER SOURCE 01/11/2025 DARWIN VALDESOB: [id number] [place], [place] [address]Auk: (HP) (WP) Primary Insurance:HUMANA MEDICAREPolicy Number: [id number] Date:2018-11-29 DARWIN VALDESOB: [id number] [place], [place] [address]Zoj: () [facility]
--- OUTSIDE RECORDS SUMMARY | 2025-01-11 10:58 | XMS RPT_ITS ---
Author Name Auto Generated Organization [facility] Care Team Providers Care Circular Knitter Helper Name Role Phone ISIDORO POND Attending Unavailable PROBLEMS No Problem Records Found PROCEDURES No Procedure Records Found RESULTS ALLERGIES DATE TYPE / CODE NAME / CODE REACTION SEVERITY SOURCE 01/11/2025 DRUG INGREDI/[id number](S NOMED CT) PENICILLIN Rash [facility] ENCOUNTERS ADMIT/DISCHARGE ACCOUNT NUMBER ADMITTING ENCOUNTER CLASS LOCATION SOURCE 01/11/2025/ [id number] Ambulatory Building:[facility] [id number] [facility] Ambulatory PAYERS ENCOUNTER GUARANTOR PAYER SUBSCRIBER SOURCE 01/11/2025 DARWIN VALDESOB: [id number] [place], [place] [address]Dxs: (HP) (WP) Primary Insurance:HUMANA MEDICAREPolicy Number: [id number] Date:2018-11-29 DARWIN VALDESOB: [id number] [place], [place] [address]Okz: () [facility]
--- NOTE | 2025-08-28 10:45 | BI_ITS ---
EXAM: SCRN MAMM (CAD)W/STANTON BILAT DATE: 08/28/2025 CLINICAL HISTORY: F, Age 59 y/o , SCRN MAMM (CAD)W/STANTON BILAT Routine screening TECHNIQUE: Procedure Code: BISMWCADBTOM Modality: MG Procedure: SCRN MAMM (CAD)W/STANTON BILAT COMPARISON: Prior exam(s) dated 08/17/2024. FINDINGS: TISSUE DENSITY: There are scattered areas of fibroglandular density. Bilateral Breast Mammographic Findings: No significant masses, calcifications or other abnormalities are identified. Stable post biopsy change in the upper-outer quadrant of the right breast. No suspicious findings BI/SCRN MAMM (CAD)W/STANTON BILAT IMPRESSION: Stable mammogram, no suspicious findings OVERALL FINAL ASSESSMENT BI-RADS 2: BENIGN RECOMMENDATION: Routine annual follow-up in 1 Year Additional Recommendation none A letter with findings and recommendations will be mailed to the patient. Reading Location: [id number]
--- NOTE | 2025-08-28 10:45 | BI_ITS ---
EXAM: SCRN MAMM (CAD)W/STANTON BILAT DATE: 08/28/2025 CLINICAL HISTORY: F, Age 59 y/o , SCRN MAMM (CAD)W/STANTON BILAT Routine screening TECHNIQUE: Procedure Code: BISMWCADBTOM Modality: MG Procedure: SCRN MAMM (CAD)W/STANTON BILAT COMPARISON: Prior exam(s) dated 08/17/2024. FINDINGS: TISSUE DENSITY: There are scattered areas of fibroglandular density. Bilateral Breast Mammographic Findings: No significant masses, calcifications or other abnormalities are identified. Stable post biopsy change in the upper-outer quadrant of the right breast. No suspicious findings BI/SCRN MAMM (CAD)W/STANTON BILAT IMPRESSION: Stable mammogram, no suspicious findings OVERALL FINAL ASSESSMENT BI-RADS 2: BENIGN RECOMMENDATION: Routine annual follow-up in 1 Year Additional Recommendation none A letter with findings and recommendations will be mailed to the patient. Reading Location: [id number]
== END | disposition home or self-care (01) ==
LOC: OPBI 10:45
PROVIDERS: PCP Internal Medicine; Referring Provider Internal Medicine; Visit Provider Internal Medicine
DX: Z12.31 Encounter for screening mammogram for malignant neoplasm of breast (principal)
CPT/HCPCS: 77063; 77067

== ENCOUNTER → 2025-11-02 | Outpatient (CLI) | payer MEDICARE, SELFPAY ==
[2025-11-02 15:01] LABS: Hematocrit 41.8 % (37-47); Hemoglobin 14.0 g/dL (12.0-15.0); Immature Granulocytes Count 0.050 X10^3/uL (0.0-0.0); Mean Corp Hgb Conc 33.5 g/dL (32-36); Mean Corpuscular Volume 94.1 fL (81-99); Mean Platelet Vol. 9.5 fl (6.2-12.0); NRBC Flagged by Analyzer 0 % (0-5); Platelet Count 323 K/mm3 (150-450); RBC Distribution Width CV 12.6 % (11.6-14.6); RBC Distribution Width SD 43.7 fl (35.1-43.9); Red Blood Count 4.44 M/mm3 (4.2-5.4); White Blood Count 10.5 K/mm3 (4.4-11.0)
[2025-11-02 15:27] LABS: AST(SGOT) 31 U/L (<=31); Alanine Aminotransfer ALT/SGPT 25 U/L (<=34); Albumin, Serum 4.6 g/dL (3.4-4.8); Alkaline Phosphatase 56 U/L (35-104); Anion Gap 12 (5-15); BUN 19 mg/dL (4-19); BUN/Creat Ratio 14.9 RATIO (10-20); Calcium,Total 10.3 mg/dL (7.6-11.0); Carbon Dioxide 24.0 mmol/L (21.0-32.0); Chloride 105 mmol/L (98-108); Free T3 2.1 pg/mL (2.18-3.98); Globulin 2.7 g/dL (2.2-4.2); Glucose 98 mg/dL (70-99); Potassium 4.0 mmol/L (3.3-5.1)
== END | disposition home or self-care (01) ==
LOC: CIMLAB 13:25
PROVIDERS: PCP Internal Medicine; Referring Provider Internal Medicine; Visit Provider Internal Medicine
DX: E34.9 Endocrine disorder, unspecified (principal); I10 Essential (primary) hypertension
CPT/HCPCS: 36415; 80053; 82627; 82670; 84402; 84439; 84481; 85025; 82626

== ENCOUNTER → 2025-11-08 | Outpatient (CLI) | payer MEDICARE, SELFPAY ==
[2025-11-08 11:09] LABS: Free T3 2.0 pg/mL (2.18-3.98)
== END | disposition home or self-care (01) ==
LOC: CIMLAB 09:02
PROVIDERS: PCP Internal Medicine; Referring Provider Internal Medicine; Visit Provider Internal Medicine
DX: E24.0 Pituitary-dependent Cushing's disease (principal)
CPT/HCPCS: 36415; 82627; 84402; 84439; 84481; 82626